=== PATIENT | female | born 1965 | race Caucasian/White ===

== ENCOUNTER → 2020-01-21 08:20 | Outpatient (BNVA) | payer OTHER, SELFPAY | PROVIDERS: Visit Provider Physician Assistant | DX: E66.9 Obesity, unspecified (principal); Z68.37 Body mass index [BMI] 37.0-37.9, adult; Z98.84 Bariatric surgery status | CPT/HCPCS: 99212 ==

== ENCOUNTER 2020-01-22 08:21 | Outpatient (REF) | payer OTHER, SELFPAY ==
--- NOTE | 2020-01-22 08:24 | XR_ITS ---
EXAMINATION: XR PELVIS CLINICAL INFORMATION: M25.559 - Pain in unspecified hip COMPARISON: Radiographs left hip 12/17/2019; chest radiograph 09/16/2016 TECHNIQUE: AP view of the pelvis. FINDINGS: There is no fracture or destructive process. Degenerative changes are present lower lumbar spine with disc narrowing and lumbosacral junction and vertebral spurring L4 and L5. The SI joints and pubis are unremarkable. No diastases. There is whiskering from the bilateral iliac crests both superomedial and superolateral. Left hip shows mild axial narrowing with some mild subchondral sclerosis. No visible erosive change. No definite right hip narrowing. There is spurring from the right superolateral acetabulum. There is bilateral spurring from the hip greater trochanters. Some smooth periosteal thickening again seen just distal to the left lesser trochanter and benign-appearing calcification on right just distal to the greater trochanter. Bowel gas unremarkable. There are surgical clips overlying low central pelvis. XR/XR pelvis 1-2V IMPRESSION: 1. Degenerative changes lumbosacral spine. Osteoarthritis left hip. 2. Bilateral spurring greater trochanters and iliac crests. 3. No bony destructive process or fracture.
== END 2020-01-22 08:22 | disposition home or self-care (01) ==
LOC: HO.HOSX 08:21
PROVIDERS: PCP Internal Medicine; Referring Provider Internal Medicine; Visit Provider Orthopaedic Surgery
DX: M16.12 Unilateral primary osteoarthritis, left hip (principal); S30.1XXA Contusion of abdominal wall, initial encounter; Z79.899 Other long term (current) drug therapy
CPT/HCPCS: 20610; 72170; J1100

== ENCOUNTER → 2020-02-11 08:19 | Outpatient (BNVA) | payer SELFPAY | PROVIDERS: Visit Provider Physician Assistant | DX: Z76.89 Persons encountering health services in other specified circumstances (principal) ==

== ENCOUNTER → 2020-03-17 08:29 | Outpatient (BNVA) | payer OTHER, SELFPAY | PROVIDERS: PCP Internal Medicine; Visit Provider Physician Assistant | DX: Z76.89 Persons encountering health services in other specified circumstances (principal) ==

== ENCOUNTER 2020-03-29 07:00 | Outpatient (RCR) | payer OTHER, SELFPAY ==
--- NOTE | 2020-01-30 08:21 | MHC.PT.EP ---
[facility] [place] Office [place] Office [place] Office [address] Davon Alford [address] [phone] F: [phone] F: [phone] F: [phone] F: [phone] Physical Therapy Plan of Care Date of Evaluation: 01/30/20 Date of Surgery: Diagnosis: Unilateral primary OA of L hip Assessment: 54 y/o F referred to PT with unilateral primary OA of L hip. Her pain started 6 months ago when she fell backwards onto L hip when her lawnmower 'kicked.' Over time, her pain has worsened and located L posterolateral hip. Pain and difficulty with sitting >30min, standing, squatting, getting in/out of car, and ascending/descending stairs. PMH significant for B TKA, cervical surgery (?type after myelopathy). Examination shows decreased L hip AROM, decreased L LE strength, impaired SI mechanics with R anterior innominate, and impaired gait pattern. Recommend PT 2x/week for 5 weeks to address impairments, implement HEP, and optimize functional mobility. Frequency and Duration: The patient will be seen 2x/week for 5 weeks Short Term Goals: 3 weeks 1. I with HEP 2. Improve L hip strength by one MMT grade 3. Demonstrate neutral SI alignment Regional [facility] Manager Goals: 5 weeks: 1. I with HEP and self management of sx 2. Pt will be able to walk > 1 mile with pain < 3/10 3. Pt will be able to get in/out of car with pain < 3/10 Treatment Plan: Modalities to reduce pain, spasms and effusion. Manual therapy to restore motion and function. Therapeutic exercise to improve strength and flexibility. Neuromuscular re-education for posture and balance. Therapeutic activities to return to functional activities of daily living. Please sign and return to therapist. Thank you for your referral.
--- NOTE | 2020-02-20 08:00 | MHC.PT.PR ---
[facility] [place] Office [place] Office [place] Office [address] Davon Alford [address] [phone] F: [phone] F: [phone] F: [phone] F: [phone] Physical Therapy Progress Note Diagnosis: Unilateral primary OA of L hip Date of Evaluation: 01/30/20 Treatments to Date: 6 Cancellations to Date: 0 No Shows to Date: 0 Subjective: I was at school yesterday and had to move more. I still feel stiff. She has an appointment for her lymphedema that was diagnosed this summer in April. Pain Score: 7 Pain Location: L posterolateral hip Objective Measures: Lumbar AROM: extension 75%, flexion 100%. Hip AROM: flexion R 120, L 110. IR R 20, L 15 Resisted tests: L hip flexion 4+, L hip abd 4-/5, L hip add 4+/5, L ER 4/5, L IR 4-/5 (painful), L quads/HS 4+/5, L df/pf 4+/5 Assessment: Reports feeling 70% better overall since starting PT, however she still has difficulty with ascending/descending stairs and getting in/out of the car. She is making good progress with strength, ROM gains, and functional mobility. She would benefit from continued PT 2x/week for 4 more weeks to progress functional mobility and strength to assist with stairs and getting in/out of car. PT Plan: Continue with PT Frequency and Duration: The patient will be seen 2x/week for an additional 4 weeks Treatment Plan: Therapeutic Exercise Dynamic Therapeutic Activities Neuromuscular Re-ed Manual Therapies Gait Home Exercise Program Patient Education Hot or Cold Pack Thank you once again for your referral.
--- NOTE | 2020-03-29 08:07 | MHC.PT.DC ---
[facility] [place] Office [place] Office [place] Office [address] Davon Alford [address] [phone] F: [phone] F: [phone] F: [phone] F: [phone] Physical Therapy Discharge Report Diagnosis: Unilateral primary OA of L hip Date of Surgery: NA Date of Evaluation: 01/30/20 Date of Discharge: 03/29/20 Treatments to Date: 14 Cancellations to Date: 0 No Shows to Date: 1 Discharge Status: Improved Function Independent with HEP Discharge Summary: Pt reports feeling better since starting PT with sit to stands, stepping out of car and she is now ambulating 2 miles/day. She continues to have pain and difficulty with sleeping through the night, stepping into the car, and she continues to ascend/descend stairs in step to pattern. She has an appointment with a lymphedema specialist in April. Lumbar AROM grossly WFL, Hip AROM grossly WFL except L hip IR. Hip/knee strength grossly WFL with limitations continued with hip IR 4-/5. LEFS improved from 2/80 to 30/80. We reviewed HEP and no corrections needed. Pt appropriate for D/c to I HEP. No further questions at this time. Electronically signed by: Delilah Villafana PT DPT Please sign and return to therapist. Thank you for your referral.
== END 2020-03-29 08:07 | disposition other institution (70) ==
LOC: HO.PTCHIC 07:00
PROVIDERS: PCP Internal Medicine; Visit Provider Orthopaedic Surgery
DX: M16.12 Unilateral primary osteoarthritis, left hip (principal)
CPT/HCPCS: 97110; 97112; 97140; 97162; 97530

== ENCOUNTER → 2020-04-15 08:07 | Outpatient (BNVA) | payer OTHER, SELFPAY | PROVIDERS: Visit Provider Orthopaedic Surgery ==

== ENCOUNTER → 2020-05-21 08:08 | Outpatient (BNVA) | payer OTHER, SELFPAY | PROVIDERS: PCP Internal Medicine; Visit Provider Physician Assistant ==

== ENCOUNTER 2020-05-25 06:13 | Outpatient (REF) | payer OTHER, SELFPAY ==
--- NOTE | ~2020-05-25 | FL_ITS ---
EXAMINATION: XR FLUOROSCOPY WITH IMAGES CLINICAL INFORMATION: M16.12 - Unilateral primary osteoarthritis, left hip COMPARISON: Pelvic radiographs 01/22/2020, radiographs left hip 12/17/2019 TECHNIQUE: Fluoroscopy performed by Brooke Claire NP. Fluoroscopy time: 0.2 minutes DAP: 5.78 Gycm2 Images: 1 FINDINGS: There is spinal needle overlying the superolateral left femoral head. There is some intracapsular contrast present. FL/FL guidance in treatment room IMPRESSION: Fluoroscopy for pain management procedure.
== END 2020-05-25 06:14 | disposition home or self-care (01) ==
LOC: HO.RADIR 06:13
PROVIDERS: Visit Provider Anesthesiology
DX: M16.12 Unilateral primary osteoarthritis, left hip (principal)
CPT/HCPCS: 20610; J3300; Q9967

== ENCOUNTER → 2020-06-28 14:50 | Outpatient (BNVA) | payer OTHER, SELFPAY | PROVIDERS: Visit Provider Anesthesiology ==

== ENCOUNTER → 2020-07-12 10:30 | Outpatient (BNVA) | payer OTHER, SELFPAY | PROVIDERS: Visit Provider Orthopaedic Surgery ==

== ENCOUNTER → 2020-07-23 08:42 | Outpatient (BNVA) | payer OTHER, SELFPAY | PROVIDERS: Visit Provider Physician Assistant ==

== ENCOUNTER → 2020-08-17 10:20 | Outpatient (BNVA) | payer OTHER, SELFPAY | PROVIDERS: Visit Provider Orthopaedic Surgery | DX: M17.12 Unilateral primary osteoarthritis, left knee (principal) | CPT/HCPCS: 36415; 80048; 83036; 85025; 93005 ==

== ENCOUNTER → 2020-08-26 08:11 | Outpatient (BNVA) | payer OTHER, SELFPAY | PROVIDERS: PCP Internal Medicine; Visit Provider Physician Assistant ==

== ENCOUNTER → 2020-09-03 13:23 | Outpatient (BNVA) | payer OTHER, SELFPAY | PROVIDERS: Visit Provider Physician Assistant ==

== ENCOUNTER 2020-09-07 07:46 | Inpatient (IN) | payer OTHER, SELFPAY ==
--- NOTE | 2020-08-17 11:26 | ECG_ITS ---
Test Reason : PREPROC EXAM Blood Pressure : / mmHG Vent. Rate : 057 BPM Atrial Rate : 057 BPM P-R Int : 136 ms QRS Dur : 094 ms QT Int : 418 ms P-R-T Axes : 062 063 037 degrees QTc Int : 406 ms Sinus bradycardia Nonspecific ST abnormality Abnormal ECG When compared with ECG of 16-APR-2015 13:37, Premature ventricular complexes are no longer Present Referred By: Uvaldo Messer Electronically Signed By:Alphonse Russell
--- NOTE | 2020-08-30 11:41 | P.CONAN_ITS ---
Documented by User: Kristyn Bella 09/06/20 08:25 HPI - Anesthesia Eval Consult details Narrative: 55yo F for Left Hip Total Replacement PCP cleared Multiple Med allergiesAnaphylaxis with dilaudid and morphine Pt received fentanyl during prior procedures without issue. OK to take oxycodone. PMFSH Active Problems Active Problems: All Active Problems (Updated 08/30/20 @ 11:39 by Khushboo Sanchez) Obesity (Acute) S/P gastric bypass (Acute) Osteoarthritis of left hip (Acute) Arthritis, hip (Acute) Hip pointer (Acute) Hip pain (Acute) Past Medical History Medical History Arthritis Arthritis, hip Hip pain Hip pointer History of colitis History of CVA (cerebrovascular accident) without residual deficits History of shingles Lymphedema Lymphedema of both lower extremities Osteoarthritis of left hip Plantar fasciitis Pulmonary emboli Family History Family History Mother No problems noted. Father No problems noted. Family history of problems with anesthesia: No Surgical History Surgical History History of umbilical hernia repair Hx laparoscopic cholecystectomy Hx of appendectomy Hx of dilation and curettage Hx of gastric bypass Hx of laminectomy Hx of total knee replacement History of Problems with Anesthesia: No Social History Social History (Updated 09/07/20 @ 11:38 by Jewels Lucas RN) Housing: House Are you a primary critical care unit manager to a significant other at home: No Do you presently have visiting nurse or other home services: No Alcohol intake: never Patient Tobacco Use Status: Never used Tobacco Second Hand Smoke Exposure: Yes (parents) Use of substances other than those prescribed or required for medical reasons: No Have you been hit, kicked, punched, or otherwise hurt by someone within the past year? 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 Activity limited to pain. No CP/SOB at rest. Meds Allergies Allergy/AdvReac Type Severity Reaction Status Date / Time cephalexin [Keflex] Allergy Severe anaphylaxis Verified 09/03/20 13:57 dicloxacillin Allergy Severe Anaphylaxis Verified 09/03/20 13:57 Erythromycin Allergy Severe anaphylaxis Verified 09/03/20 13:57 gabapentin [From NEURONTIN] Allergy Severe CONFUSION, Verified 09/03/20 13:57 SLURRED SPEECH hydrochlorothiazide Allergy Severe RASH,SWELLING, Verified 09/03/20 13:57 [HYDROCHLOROTHIAZIDE] weakness, headaches, balance issues, dry mouth hydromorphone [From DILAUDID] Allergy Severe ANAPHYLAXIS Verified 09/03/20 13:57 indomethacin [Indocin] Allergy Severe anaphylaxis Verified 09/03/20 13:57 morphine [MORPHINE] Allergy Severe MAJOR Verified 09/03/20 13:57 HIVES, SWEATING, THROAT CLOSES, hives,sweats moxifloxacin [From AVELOX] Allergy Severe ANAPHYLAXIS Verified 09/03/20 13:57 Sulfa (Sulfonamide Allergy Severe MD SAID TO Verified 09/03/20 13:57 Antibiotics) WATCH OUT, [SULFA (SULFONAMIDE anaphylaxis ANTIBIOTICS)] sulfamethoxazole Allergy Severe ANAPHYLAXIS Verified 09/03/20 13:57 [From BACTRIM] trimethoprim [From BACTRIM] Allergy Severe ANAPHYLAXIS Verified 09/03/20 13:57 Doxycycline Hyclate Allergy Severe anaphylaxis Uncoded 09/03/20 13:57 Pt states no known food Allergy Unknown Unknown Uncoded 09/03/20 13:57 allerg Home Medications Medication Instructions Recorded Confirmed Last Taken Type clonazepam 2 mg tablet 2 mg PO QAM 01/21/20 09/01/20 Unknown History dextroamphetamine-amphetamine 20 1 tab PO TID 01/21/20 09/01/20 Unknown History mg tablet lurasidone 120 mg tablet 120 mg PO DAILY@1700 01/21/20 09/01/20 Unknown History metformin 500 mg tablet,extended 500 mg PO BEDTIME 01/21/20 09/01/20 Unknown History release 24 hr topiramate 50 mg tablet 50 mg PO BID 01/21/20 09/01/20 Unknown History vortioxetine 20 mg tablet 20 mg PO QAM 01/21/20 09/07/20 09/07/20 History clonazepam 4 mg PO QPM 08/27/20 09/01/20 Unknown History inulin [Fiber Gummies] 2 g PO QAM 08/27/20 09/01/20 Unknown History iron,trtfonel-JJ-eogipuge-min 1 tab PO DAILY 08/27/20 09/01/20 Unknown History [Opurity Multivitamin] omeprazole 40 mg PO QAM 08/27/20 09/01/20 Unknown History Exam Exam Date and Time: August 30, 2020 1141 Pertinent Lab Results Pertinent Lab Results: Laboratory Tests 08/17/20 08/17/20 11:40 11:40 WBC 7.0 Hgb 13.5 Hct 40.9 Plt Count 251 Sodium 143 Potassium 3.5 Chloride 108 Carbon Dioxide 26 BUN 17 H Creatinine 0.77 Lab Results 08/30/20 08/30/20 08/30/20 Range/Units 00:00 13:00 13:00 Total Insulin uIU/mL C-Reactive Protein 0.07 (< or = 0.50) mg/dL Triglycerides 97 mg/dL Cholesterol 151 mg/dL LDL Cholesterol, Calc 67 mg/dl HDL Cholesterol 65 mg/dL Vitamin A (38-98) mcg/dL Vitamin B1 (8-30) nmol/L Vitamin B12 (200-900) pg/mL 25-OH Vitamin D Total 43.5 (>30) ng/mL Folate (> or = 4.0) ng/mL TSH 0.22 L (0.32-4.0) uIU/mL Free T4 1.09 (0.71-1.85) ng/dL Nasal Screen MRSA (PCR) POSITIVE A (Negative) Nasal S. aureus Screen POSITIVE A (Negative) Nasal MRSA/S.aureus Interp SEE NOTE Zinc (60-130) mcg/dL Blood Type A Positive Antibody Screen NEGATIVE 08/30/20 08/30/20 08/30/20 Range/Units 13:00 13:00 13:00 Total Insulin 2.2 uIU/mL C-Reactive Protein (< or = 0.50) mg/dL Triglycerides mg/dL Cholesterol mg/dL LDL Cholesterol, Calc mg/dl HDL Cholesterol mg/dL Vitamin A 47 (38-98) mcg/dL Vitamin B1 47 H (8-30) nmol/L Vitamin B12 797 (200-900) pg/mL 25-OH Vitamin D Total (>30) ng/mL Folate 10.8 (> or = 4.0) ng/mL TSH (0.32-4.0) uIU/mL Free T4 (0.71-1.85) ng/dL Nasal Screen MRSA (PCR) (Negative) Nasal S. aureus Screen (Negative) Nasal MRSA/S.aureus Interp Zinc (60-130) mcg/dL Blood Type Antibody Screen 08/30/20 Range/Units 13:00 Total Insulin uIU/mL C-Reactive Protein (< or = 0.50) mg/dL Triglycerides mg/dL Cholesterol mg/dL LDL Cholesterol, Calc mg/dl HDL Cholesterol mg/dL Vitamin A (38-98) mcg/dL Vitamin B1 (8-30) nmol/L Vitamin B12 (200-900) pg/mL 25-OH Vitamin D Total (>30) ng/mL Folate (> or = 4.0) ng/mL TSH (0.32-4.0) uIU/mL Free T4 (0.71-1.85) ng/dL Nasal Screen MRSA (PCR) (Negative) Nasal S. aureus Screen (Negative) Nasal MRSA/S.aureus Interp Zinc 88 (60-130) mcg/dL Blood Type Antibody Screen Narrative Narrative: EKG 08/2020 Vent. Rate : 057 BPM Atrial Rate : 057 BPM P-R Int : 136 ms QRS Dur : 094 ms QT Int : 418 ms P-R-T Axes : 062 063 037 degrees QTc Int : 406 ms Sinus bradycardia Nonspecific ST abnormality Abnormal ECG When compared with ECG of 16-APR-2015 13:37, Premature ventricular complexes are no longer Present Airway Mallampati Class: I TM Dist: >3cm Neck ROM: Limited (Multiple c-spine surgeries) Partial: Upper and Lower Heart: RRR Lungs: CTAB Assessment and Plan Assessment Anesthesia Assessment: Anesthesia Plan Discussed and PAT Visit Documented by User: Sincere Domingo MD 09/07/20 12:38 [facility] Past Medical History Medical History Arthritis Arthritis, hip Hip pain Hip pointer History of colitis History of CVA (cerebrovascular accident) without residual deficits History of shingles Lymphedema Lymphedema of both lower extremities Osteoarthritis of left hip Plantar fasciitis Pulmonary emboli Family History Family History Mother No problems noted. Father No problems noted. Surgical History Surgical History History of umbilical hernia repair Hx laparoscopic cholecystectomy Hx of appendectomy Hx of dilation and curettage Hx of gastric bypass Hx of laminectomy Hx of total knee replacement Social History Social History (Updated 09/07/20 @ 11:38 by Jewels Lucas RN) Housing: House Are you a primary critical care unit manager to a significant other at home: No Do you presently have visiting nurse or other home services: No Alcohol intake: never Patient Tobacco Use Status: Never used Tobacco Second Hand Smoke Exposure: Yes (parents) Use of substances other than those prescribed or required for medical reasons: No Have you been hit, kicked, punched, or otherwise hurt by someone within the past year? 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 Meds Allergies Allergy/AdvReac Type Severity Reaction Status Date / Time cephalexin [Keflex] Allergy Severe anaphylaxis Verified 09/03/20 13:57 dicloxacillin Allergy Severe Anaphylaxis Verified 09/03/20 13:57 Erythromycin Allergy Severe anaphylaxis Verified 09/03/20 13:57 gabapentin [From NEURONTIN] Allergy Severe CONFUSION, Verified 09/03/20 13:57 SLURRED SPEECH hydrochlorothiazide Allergy Severe RASH,SWELLING, Verified 09/03/20 13:57 [HYDROCHLOROTHIAZIDE] weakness, headaches, balance issues, dry mouth hydromorphone [From DILAUDID] Allergy Severe ANAPHYLAXIS Verified 09/03/20 13:57 indomethacin [Indocin] Allergy Severe anaphylaxis Verified 09/03/20 13:57 morphine [MORPHINE] Allergy Severe MAJOR Verified 09/03/20 13:57 HIVES, SWEATING, THROAT CLOSES, hives,sweats moxifloxacin [From AVELOX] Allergy Severe ANAPHYLAXIS Verified 09/03/20 13:57 Sulfa (Sulfonamide Allergy Severe MD SAID TO Verified 09/03/20 13:57 Antibiotics) WATCH OUT, [SULFA (SULFONAMIDE anaphylaxis ANTIBIOTICS)] sulfamethoxazole Allergy Severe ANAPHYLAXIS Verified 09/03/20 13:57 [From BACTRIM] trimethoprim [From BACTRIM] Allergy Severe ANAPHYLAXIS Verified 09/03/20 13:57 Doxycycline Hyclate Allergy Severe anaphylaxis Uncoded 09/03/20 13:57 Pt states no known food Allergy Unknown Unknown Uncoded 09/03/20 13:57 allerg Home Medications Medication Instructions Recorded Confirmed Last Taken Type clonazepam 2 mg tablet 2 mg PO QAM 01/21/20 09/01/20 Unknown History dextroamphetamine-amphetamine 20 1 tab PO TID 01/21/20 09/01/20 Unknown History mg tablet lurasidone 120 mg tablet 120 mg PO DAILY@1700 01/21/20 09/01/20 Unknown History metformin 500 mg tablet,extended 500 mg PO BEDTIME 01/21/20 09/01/20 Unknown History release 24 hr topiramate 50 mg tablet 50 mg PO BID 01/21/20 09/01/20 Unknown History vortioxetine 20 mg tablet 20 mg PO QAM 01/21/20 09/07/20 09/07/20 History clonazepam 4 mg PO QPM 08/27/20 09/01/20 Unknown History inulin [Fiber Gummies] 2 g PO QAM 08/27/20 09/01/20 Unknown History iron,quqfedpv-HI-uupullhl-min 1 tab PO DAILY 08/27/20 09/01/20 Unknown History [Opurity Multivitamin] omeprazole 40 mg PO QAM 08/27/20 09/01/20 Unknown History Assessment and Plan Assessment Anesthesia Assessment: Anesthesia Plan Discussed Final Anesthetic Review NPO: Yes ASA Class: III Final Preanesthetic Review: No Changes in Pt Med Stat, Meds/Allgs Chart Reviewed, Consent Obtained/Reviewed and Anes Risks/Benef Reviewed Patient Risk: Intermediate Procedure Risk: Intermediate Anesthetic Plan Anesthetic Plan: MAC:, Spinal and Regional Block Disposition: Standard PACU
[2020-08-30 11:49] VITALS: BP 120/81; PULSE 67; RESP 16; O2SAT 98; BMI 37.8
[2020-08-30 14:17] LABS: C Reactive Protein 0.07 mg/dL (< or = 0.50); Cholesterol 151 mg/dL; HDL Cholesterol 65 mg/dL; LDL Cholesterol Calculated 67 mg/dl; Triglycerides 97 mg/dL
[2020-08-30 14:27] LABS: MRSA Nasal PCR POSITIVE (Negative); SA Nasal PCR POSITIVE (Negative)
[2020-08-30 14:40] LABS: TSH reflex Free T4 0.22 uIU/mL (0.32-4.0); Vitamin D 25-OH Total 43.5 ng/mL (>30)
[2020-08-30 15:20] LABS: Folate 10.8 ng/mL (> or = 4.0); Vitamin B12 797 pg/mL (200-900)
[2020-08-30 15:56] LABS: Free T4 (Free Thyroxine) 1.09 ng/dL (0.71-1.85)
[2020-08-31 18:32] LABS: Insulin Level Total 2.2 uIU/mL
[2020-09-01 23:42] LABS: Zinc 88 mcg/dL (60-130)
[2020-09-03 18:22] LABS: Vitamin A 47 mcg/dL (38-98)
[2020-09-04 13:41] LABS: Vitamin B1 47 nmol/L (8-30)
[2020-09-07] VITALS (13 sets, daily range): BP systolic 86–138; BP diastolic 44–63; PULSE 47–77; RESP 16–18; TEMP 35.7–36.6; O2SAT 94–100
--- NOTE | ~2020-09-07 | XR_ITS ---
EXAMINATION: XR PELVIS CLINICAL INFORMATION: Post left hip replacement COMPARISON: Previous x-ray January 2020 TECHNIQUE: AP view of the pelvis. FINDINGS: There is a new left hip replacement in satisfactory position. No fracture or dislocation is seen. There is arthritis at the right hip joint. Bones of the visualized pelvis are unremarkable. There are postoperative changes to the soft tissues. XR/XR pelvis 1-2V IMPRESSION: Satisfactory appearance of left hip replacement.
[2020-09-07] MEDS: oxyCODONE HCl ER 10 MG TAB.ER.12H PO ×2 (10:40→20:21)
[2020-09-07] MEDS: Lactated Ringers 1,000 ML 80 ML IVCONT (10:59)
[2020-09-07 11:22] LABS: COVID-19 Test Negative (Negative); IDNOW Serial# 9DD0AD1C
--- NOTE | 2020-09-07 11:34 | PC.NURSE ---
regional block at 1132 pt verbalized understanding of procedure and plan of care
--- NOTE | 2020-09-07 13:59 | P.BOP_ITS ---
Brief Operative Note Date of Service: 09/07/20 Pre-op diagnosis: left hip OA Post-op diagnosis: same Procedure: Left DEE Implants: Buckner trident2 52/20 deg liner Accolade2#6 127 with 36+2.5 ceramic Surgeon: Uvaldo Messer MD Anesthesia: GETA Was an Leather Heel Breaster used for this Procedure?: Yes Leather Heel Breaster: Mague Cameron Estimated blood loss (mL): 300 IV fluids (mL): 1,400 Pathology: other Condition: stable Disposition: PACU
--- NOTE | 2020-09-07 13:59 | MHC.SHP ---
Pre-Procedural Eval Section A The patient is an INPATIENT: No Changes since office visit: Yes Patient answered all questions; No Cold of Flu in the past 2 weeks, No New Medical Problems and No Changes in Medication The History & Physical has been completed within 30 days and I have reviewed it.: Yes Section B Chief Complaint: left total hip arthroplasty Allergies: Allergies Allergy/AdvReac Type Severity Reaction Status Date / Time cephalexin [Keflex] Allergy Severe anaphylaxis Verified 09/03/20 13:57 dicloxacillin Allergy Severe Anaphylaxis Verified 09/03/20 13:57 Erythromycin Allergy Severe anaphylaxis Verified 09/03/20 13:57 gabapentin [From NEURONTIN] Allergy Severe CONFUSION, Verified 09/03/20 13:57 SLURRED SPEECH hydrochlorothiazide Allergy Severe RASH,SWELLING, Verified 09/03/20 13:57 [HYDROCHLOROTHIAZIDE] weakness, headaches, balance issues, dry mouth hydromorphone [From DILAUDID] Allergy Severe ANAPHYLAXIS Verified 09/03/20 13:57 indomethacin [Indocin] Allergy Severe anaphylaxis Verified 09/03/20 13:57 morphine [MORPHINE] Allergy Severe MAJOR Verified 09/03/20 13:57 HIVES, SWEATING, THROAT CLOSES, hives,sweats moxifloxacin [From AVELOX] Allergy Severe ANAPHYLAXIS Verified 09/03/20 13:57 Sulfa (Sulfonamide Allergy Severe MD SAID TO Verified 09/03/20 13:57 Antibiotics) WATCH OUT, [SULFA (SULFONAMIDE anaphylaxis ANTIBIOTICS)] sulfamethoxazole Allergy Severe ANAPHYLAXIS Verified 09/03/20 13:57 [From BACTRIM] trimethoprim [From BACTRIM] Allergy Severe ANAPHYLAXIS Verified 09/03/20 13:57 Doxycycline Hyclate Allergy Severe anaphylaxis Uncoded 09/03/20 13:57 Pt states no known food Allergy Unknown Unknown Uncoded 09/03/20 13:57 allerg Plan I have reviewed the history and physical and performed a pertinent physical examination on my patient. No changes have occurred unless specified.
[2020-09-07] MEDS: Dextrose 5 % and 0.45 % NaCl 1,000 ML 80 ML IVCONT (16:11)
[2020-09-07] MEDS: 0.9 % Sodium Chloride Flush 3 ML SYRINGE IVFLUSH (16:12)
[2020-09-07] MEDS: oxyCODONE HCl Immed Release 5 MG TABLET PO ×2 (17:17→21:34)
[2020-09-07] MEDS: Docusate Sodium 100 MG CAPSULE PO (20:21)
[2020-09-07] MEDS: 0.9 % Sodium Chloride 1,000 ML 999 ML IV (20:21)
[2020-09-07] MEDS: vancomycin HCL 1,500 MG in 0.9 % Sodium Chloride 500 ML 333.33 MG IV (23:16)
--- NOTE | 2020-09-08 00:09 | P.PNIM_ITS ---
Subjective Subjective Date of Service: 09/11/20 Interval History: Medicine consultation note: 55-year-old female with a past medical history of diabetes, anxiety, depression, mood disorder, history of CVA, conversion disorder, history of arthritis, status post bilateral knee replacement, , history of left hip osteoarthritis admitted to the hospital under orthopedic service for elective left hip total replacement. Patient is status post procedure on 09/07/2020 - lost 300 cc of blood; medicine team was consulted for comanagement. The patient denies any hip pain, chest pain palpitations lightheadedness dizziness fever chills cough or urinary symptoms. Denies any GI symptoms. Physical Exam Vital Signs: Vital Signs: Last Vital Signs Temp 97.4 F 09/07/20 23:33 Pulse 77 09/07/20 23:33 Resp 18 09/07/20 23:33 BP 122/60 09/07/20 23:33 Pulse Ox 98 09/07/20 23:33 Body Mass Index 37.8 Gen: Appears be in no acute distress HEENT: NCAT, Moist mucosa. Pulmonary: Vesicular breath sounds, fair air entry CVS: Normal S1-S2 Abdomen: BS+, Soft, Nontender Extremities: Warm well perfused ; left hip status post surgery, dressing in place Neuro: Alert and awake. Objective Data Current Medications Generic Name Dose Route Start Last Admin Trade Name Freq PRN Reason Stop Dose Admin Acetaminophen 650 mg 09/07/20 15:44 Acetaminophen 325 Mg Tablet PO Q6H PRN Pain, Mild (Pain Scale 1-3) Docusate Sodium 100 mg 09/07/20 21:00 09/07/20 20:21 Docusate Sodium 100 Mg Capsule PO 100 mg BID MELBA Administration Dextrose/Sodium Chloride 1,000 mls @ 80 mls/hr 09/07/20 15:44 09/07/20 16:11 D51/2ns IVCONT 80 mls/hr .[id number] MELBA Administration Vancomycin HCl 1,500 mg/ 500 mls @ 333.333 mls/hr 09/07/20 23:00 09/07/20 23:16 Sodium Chloride IV 09/08/20 00:29 333.33 mls/hr ONCE@2300 MELBA Administration Ondansetron HCl 4 mg 09/07/20 15:44 Ondansetron Hcl 4 Mg/2 Ml Vial IVPUSH Q8H PRN Nausea and Vomiting Oxycodone HCl 10 mg 09/07/20 21:00 09/07/20 20:21 Oxycodone Hcl Er 10 Mg Tab.Er.12h PO 10 mg BID MELBA Administration Oxycodone HCl 5 mg 09/07/20 15:44 09/07/20 21:34 Oxycodone Hcl Immed Release 5 Mg Tablet PO 5 mg Q4H PRN Administration Pain, Moderate (Pain Scale 4-6 Sodium Chloride 3 ml 09/07/20 16:00 09/07/20 20:25 0.9 % Sodium Chloride Flush 3 Ml Syringe IVFLUSH Not Given QSHIFT [facility] Labs CBC & Chem 7: 09/10/20 10:14 09/10/20 05:56 Labs: Laboratory Results - last 24 hr 09/07/20 10:30 COVID-19 ([facility]) Negative COVID-19 Clin Com See Note Quality Stroke Does the patient have a stroke diagnosis?: No VTE Prior VTE?: No VTE Risk Level:: Medical - moderate - high VTE Device Contraindication: N/A - Device Ordered VTE Drug Contraindication: N/A - Med Ordered Assessment and Plan (1) Osteoarthritis of left hip: Assessment and Plan: 55-year-old female with a past medical history of diabetes, anxiety, depression, mood disorder, CVA, conversion disorder, history of bilateral knee replacement, left hip osteoarthritis -presented for elective left hip total replacement left hip osteoarthritis / status post left hip total replacement: management including pain control, DVT prophylaxis as per the orthopedics team. History of diabetes: Patient continued on insulin sliding scale. Diabetic diet. Patient to be resumed on home regimen upon discharge. History of anxiety/depression /mood disorder: Patient will be continued on her home medications. Thank you for the consultation. Please call medicine Team for any further questions.
[2020-09-08] MEDS: clonazePAM 1 MG TABLET 4 MG PO ×2 (00:47→20:44)
[2020-09-08 03:43] VITALS: BP 98/51; PULSE 74; RESP 18; TEMP 36.6; O2SAT 96
[2020-09-08 06:15] LABS: MANUAL DIFF FLAG NO
[2020-09-08] MEDS: Omeprazole 40 MG CAPSULE.DR PO (06:16)
[2020-09-08] MEDS: oxyCODONE HCl Immed Release 5 MG TABLET PO ×4 (06:16→20:42)
[2020-09-08] MEDS: Dextrose 5 % and 0.45 % NaCl 1,000 ML 80 ML IVCONT (06:16)
[2020-09-08 06:19] LABS: Eosinophils Percent Auto 0.4 % (0-4); Hematocrit 31.1 % (37-47); Hemoglobin 10.4 g/dl (12.0-16.0); Imm Gran Abs Auto 0.02 X10*3/uL (0.00-0.03); Imm Gran Pct Auto 0.3 % (0.0-0.4); Lymphocytes Percent Auto 13.8 % (20-40); Mean Corpuscular HGB Conc 33.4 g/dl (31.0-35.0); Mean Corpuscular Hemoglobin 30.1 pg (27.0-33.0); Mean Corpuscular Volume 89.9 fL (80-98); Mean Platelet Volume 9.9 fL (9.4-12.3); Monocytes Absolute Auto 0.5 X10*3/uL (0.1-1.2); Monocytes Percent Auto 7.2 % (2-11); Neutrophils Absolute Auto 5.5 X10*3/uL (2.0-8.3); Neutrophils Percent Auto 78.3 % (45-73); Platelet Count 151 X10*3/uL (160-400); Red Blood Count 3.46 X10*6/uL (4.20-5.50); Red Cell Distribution Width 13.1 % (11.0-16.0); White Blood Count 7.1 X10*3/uL (4.8-10.8)
[2020-09-08 06:51] LABS: Anion Gap 7 (12-20); Blood Urea Nitrogen 14 mg/dL (9-16); Calcium 7.7 mg/dL (8.4-10.2); Carbon Dioxide 26 mmol/L (22-29); Chloride 111 mmol/L (96-108); Creatinine Clr Calc Pharmacy 107.8; Estimated Glomerular Filt Rate > 60; Glucose Fasting 143 mg/dL (60-99); Potassium 4.5 mmol/L (3.3-5.1); Sodium 139 mmol/L (135-145)
[2020-09-08] MEDS: clonazePAM 1 MG TABLET 2 MG PO (07:22)
[2020-09-08 07:23] VITALS: BP 92/51; PULSE 74; RESP 18; TEMP 36.3; O2SAT 98
[2020-09-08] MEDS: Vortioxetine Hydrobromide 20 MG TABLET PO (07:23)
[2020-09-08] MEDS: oxyCODONE HCl ER 10 MG TAB.ER.12H PO (07:23)
[2020-09-08] MEDS: Docusate Sodium 100 MG CAPSULE PO ×2 (07:23→20:43)
[2020-09-08] MEDS: Topiramate 25 MG TABLET 50 MG PO ×2 (07:24→20:43)
[2020-09-08] MEDS: Amphetamine Mixed Salts 20 MG TABLET PO ×3 (07:24→16:14)
--- NOTE | 2020-09-08 07:40 | PM.PNORT ---
Subjective Subjective Date of Service: 09/08/20 Interval history: POD1 s/p left DEE with Dr. Messer. No overnight events. Patient is resting comfortably in bed. Pain is well managed. Denies any SOB, chest pain, abd pain, dizziness. Physical Exam Vital Signs: Vital Signs: Last Vital Signs Temp 97.3 F 09/08/20 07:23 Pulse 74 09/08/20 07:23 Resp 18 09/08/20 07:23 BP 92/51 L 09/08/20 07:23 Pulse Ox 98 09/08/20 07:23 Body Mass Index 37.8 Const: General: cooperative, healthy appearing and no acute distress Resp: Effort & Inspection: normal respiratory effort and able to speak in complete sentences Cardio: Rate: regular rate Peripheral pulses: Peripheral pulses 2+ throughout GI: Palpation (GI): Soft to palpation Skin: Lesions: no lesions Rashes: no rashes Extrem: Other: Left hip Aquacel dressing is clean, dry, and intact. No ecchymosis, redness, or drainage. patient can dorsiflex and plantarflex. Block is still in effect., Progress Note: A&P Assessment and plan (1) Status post total hip replacement, left: Status: Acute Assessment and Plan: Continue pain mgmnt Begin Lovenox for dvt ppx begin PT for left DEE Dispo planning-Pending PT eval, pain mgmnt Fall Risk Details Current Medications: Current Medications Generic Name Dose Route Start Last Admin Trade Name Freq PRN Reason Stop Dose Admin Acetaminophen 650 mg 09/07/20 15:44 Acetaminophen 325 Mg Tablet PO Q6H PRN Pain, Mild (Pain Scale 1-3) Amphetamine/Dextroamphetamine 20 mg 09/08/20 07:30 09/08/20 07:24 Amphetamine Mixed Salts 20 Mg Tablet PO 20 mg TIDAC MELBA Administration Clonazepam 2 mg 09/08/20 09:00 09/08/20 07:22 Clonazepam 1 Mg Tablet PO 2 mg DAILY MELBA Administration Clonazepam 4 mg 09/08/20 00:15 09/08/20 00:47 Clonazepam 1 Mg Tablet PO 4 mg BEDTIME MELBA Administration Docusate Sodium 100 mg 09/07/20 21:00 09/08/20 07:23 Docusate Sodium 100 Mg Capsule PO 100 mg BID MELBA Administration Dextrose/Sodium Chloride 1,000 mls @ 80 mls/hr 09/07/20 15:44 09/08/20 06:16 D51/2ns IVCONT 80 mls/hr .[id number] [facility] Administration Insulin Human Lispro 0 unit 09/08/20 07:30 09/08/20 07:25 Insulin Lispro 100 Unit/Ml 3 Ml Vial SUBCUT Not Given QIDACHS [facility] Protocol Lurasidone HCl 120 mg 09/08/20 17:00 Lurasidone Hcl 40 Mg Tablet PO DAILY@1700 [facility] Multivitamins/Minerals 1 tab 09/08/20 09:00 09/08/20 07:23 Multivitamin With Minerals Tablet PO 1 tab DAILY [facility] Administration Omeprazole 40 mg 09/08/20 06:30 09/08/20 06:16 Omeprazole 40 Mg Capsule.Dr PO 40 mg DAILY@0630 [facility] Administration Ondansetron HCl 4 mg 09/07/20 15:44 Ondansetron Hcl 4 Mg/2 Ml Vial IVPUSH Q8H PRN Nausea and Vomiting Oxycodone HCl 5 mg 09/07/20 15:44 09/08/20 06:16 Oxycodone Hcl Immed Release 5 Mg Tablet PO 5 mg Q4H PRN Administration Pain, Moderate (Pain Scale 4-6 Sodium Chloride 3 ml 09/07/20 16:00 09/08/20 07:22 0.9 % Sodium Chloride Flush 3 Ml Syringe IVFLUSH Not Given QSHIFT [facility] Topiramate 50 mg 09/08/20 09:00 09/08/20 07:24 Topiramate 25 Mg Tablet PO 50 mg BID MELBA Administration Vortioxetine 20 mg 09/08/20 09:00 09/08/20 07:23 Vortioxetine Hydrobromide 20 Mg Tablet PO 20 mg DAILY MELBA Administration Time Spent With Patient Time: Total time spent is greater than 50% in coordination of care (as documented) at patient's floor/unit and/or counseling patient: Time with patient: less than 15 minutes Procedures Date of Service Date of Service: 09/08/20 Quality Stroke Does the patient have a stroke diagnosis?: No VTE Prior VTE?: No VTE Risk Level:: Surgical - high VTE Device Contraindication: N/A - Device Ordered VTE Drug Contraindication: N/A - Med Ordered
[2020-09-08] MEDS: Enoxaparin Sodium 40 MG/0.4 ML SYRINGE SUBCUT (07:49)
[2020-09-08 08:07] LABS: Glucose, Whole Blood 135 mg/dL (60-115)
--- NOTE | 2020-09-08 09:25 | HO.PM.IMPN ---
Subjective Subjective Date of Service: 09/08/20 Interval History: seen in f/u for med consult, s/p left hip arthroplasty, has some pain, blood pressure on lower side, she denies, dizziness Review of Systems Gen: no fever Resp: no sob, no cough CV: no chest, no [place], no leg edema GI: No n/v, no abd pain Neuro: No confusion pain in the hip with movment Physical Exam Vital Signs: Vital Signs: Last Vital Signs Temp 97.3 F 09/08/20 07:23 Pulse 74 09/08/20 07:23 Resp 18 09/08/20 07:23 BP 92/51 L 09/08/20 07:23 Pulse Ox 98 09/08/20 07:23 Body Mass Index 37.8 Constitutional Awake and Alert, No apparent distress Neck Supple, No lymphadenopathy Cardiovascular RRR, No M/R/G, S1 S2, No S3 S4, No pedal edema Respiratory Lungs clear, No respiratory distress Gastrointestinal Non tender, Non-distended Skin No rash, wound dressing intact Neurological Alert & oriented x3 Psychological Appropriate affect Objective Data Current Medications Generic Name Dose Route Start Last Admin Trade Name Freq PRN Reason Stop Dose Admin Acetaminophen 650 mg 09/07/20 15:44 Acetaminophen 325 Mg Tablet PO Q6H PRN Pain, Mild (Pain Scale 1-3) Amphetamine/Dextroamphetamine 20 mg 09/08/20 07:30 09/08/20 07:24 Amphetamine Mixed Salts 20 Mg Tablet PO 20 mg TIDAC MELBA Administration Clonazepam 2 mg 09/08/20 09:00 09/08/20 07:22 Clonazepam 1 Mg Tablet PO 2 mg DAILY MEL[facility] Administration Clonazepam 4 mg 09/08/20 00:15 09/08/20 00:47 Clonazepam 1 Mg Tablet PO 4 mg BEDTIME [facility] Administration Docusate Sodium 100 mg 09/07/20 21:00 09/08/20 07:23 Docusate Sodium 100 Mg Capsule PO 100 mg BID MELBA Administration Enoxaparin Sodium 40 mg 09/08/20 07:45 09/08/20 07:49 Enoxaparin Sodium 40 Mg/0.4 Ml Syringe SUBCUT 40 mg Q24H MELBA Administration Lactated Ringer's 1,000 mls @ 125 mls/hr 09/08/20 08:30 Lr IVCONT .Q8H MELBA Insulin Human Lispro 0 unit 09/08/20 07:30 09/08/20 07:25 Insulin Lispro 100 Unit/Ml 3 Ml Vial SUBCUT Not Given QIDACHS [facility] Protocol Lurasidone HCl 120 mg 09/08/20 17:00 Lurasidone Hcl 40 Mg Tablet PO DAILY@1700 [facility] Multivitamins/Minerals 1 tab 09/08/20 09:00 09/08/20 07:23 Multivitamin With Minerals Tablet PO 1 tab DAILY [facility] Administration Omeprazole 40 mg 09/08/20 06:30 09/08/20 06:16 Omeprazole 40 Mg Capsule.Dr PO 40 mg DAILY@0630 [facility] Administration Ondansetron HCl 4 mg 09/07/20 15:44 Ondansetron Hcl 4 Mg/2 Ml Vial IVPUSH Q8H PRN Nausea and Vomiting Oxycodone HCl 5 mg 09/07/20 15:44 09/08/20 06:16 Oxycodone Hcl Immed Release 5 Mg Tablet PO 5 mg Q4H PRN Administration Pain, Moderate (Pain Scale 4-6 Sodium Chloride 3 ml 09/07/20 16:00 09/08/20 07:22 0.9 % Sodium Chloride Flush 3 Ml Syringe IVFLUSH Not Given QSHIFT [facility] Topiramate 50 mg 09/08/20 09:00 09/08/20 07:24 Topiramate 25 Mg Tablet PO 50 mg BID [facility] Administration Vortioxetine 20 mg 09/08/20 09:00 09/08/20 07:23 Vortioxetine Hydrobromide 20 Mg Tablet PO 20 mg DAILY [facility] Administration Labs CBC & Chem 7: 09/08/20 06:06 09/08/20 06:06 Labs: Laboratory Results - last 24 hr 09/07/20 09/08/20 09/08/20 10:30 06:06 06:06 WBC 7.1 RBC 3.46 L D Hgb 10.4 L D Hct 31.1 L D MCV 89.9 MCH 30.1 MCHC 33.4 RDW 13.1 Plt Count 151 L D MPV 9.9 Immature Gran % (Auto) 0.3 Neut % (Auto) 78.3 H Lymph % (Auto) 13.8 L Winston % (Auto) 7.2 Eos % (Auto) 0.4 Baso % (Auto) 0.0 Lymph # (Auto) 1.0 L Winston # (Auto) 0.5 Eos # (Auto) 0.0 Baso # (Auto) 0.0 Abs Immat Gran (auto) 0.02 Absolute Neuts (auto) 5.5 Absolute Nucleated RBC 0.000 Nucleated RBC % (auto) 0.0 Sodium 139 Potassium 4.5 D Chloride 111 H Carbon Dioxide 26 Anion Gap 7 L BUN 14 Creatinine 0.67 Estim Creat Clear Calc 107.8 Estimated GFR > 60 POC Glucose Fasting Glucose 143 H Calcium 7.7 L D COVID-19 ([facility]) Negative COVID-19 Clin Com See Note 09/08/20 07:21 WBC RBC Hgb Hct MCV MCH MCHC RDW Plt Count MPV Immature Gran % (Auto) Neut % (Auto) Lymph % (Auto) Winston % (Auto) Eos % (Auto) Baso % (Auto) Lymph # (Auto) Winston # (Auto) Eos # (Auto) Baso # (Auto) Abs Immat Gran (auto) Absolute Neuts (auto) Absolute Nucleated RBC Nucleated RBC % (auto) Sodium Potassium Chloride Carbon Dioxide Anion Gap BUN Creatinine Estim Creat Clear Calc Estimated GFR POC Glucose 135 H Fasting Glucose Calcium COVID-19 ([facility]) COVID-19 Clin Com Quality Stroke Does the patient have a stroke diagnosis?: No VTE Prior VTE?: No VTE Risk Level:: Surgical - high VTE Device Contraindication: N/A - Device Ordered VTE Drug Contraindication: N/A - Med Ordered Assessment and Plan (1) Osteoarthritis of left hip: Status: Acute Assessment and Plan: 55-year-old female with a past medical history of diabetes, anxiety, depression, mood disorder, CVA, conversion disorder, history of bilateral knee replacement, left hip osteoarthritis -presented for elective left hip total replacement left hip osteoarthritis / status post left hip total replacement: management including pain control, DVT prophylaxis as per the orthopedics team. History of diabetes: Patient continued on insulin sliding scale. Diabetic diet. Patient to be resumed on home regimen upon discharge. History of anxiety/depression /mood disorder: She can restart Metformin if blood sugar are high enought Hypotension--likely post anesthetic effect, no sign of evidence of sepsis. DC 1/2 NS, give LR and reevaluate Thank you for the consultation. Please call medicine Team for any further questions.
--- NOTE | 2020-09-08 10:00 | MHC.CM.PN ---
EMR REVIEWED, PT ADMITTED S/P LEFT DEE, CM MET W/PT WHO REPORTS SHE LIVES ALONE, PT WORKS [employer] AND HAS NO DME OR HOME SERVICES, PT REPORTS SHE WOULD LIKE TO GO TO THE [facility] [place] FOR REHAB AND REFERRAL TO BE MADE TO [facility]OTH [facility], PT WILL ALSO BE GIVEN LIST OF SNF'S FOR STR IN CASE SHE DOES NOT QUALIFY FOR ACUTE REHAB. PT VERIFIES PCP, PHARMACY AND HCP IS ON FILE FROM PREVIOUS VISIT. D/C PLAN: ACUTE REHAB VS STR, [facility] FOR BLS TRANSPORT PCP: MARICEL BUCIO HCP: SCOTT MOYA [phone]
[2020-09-08] MEDS: Lactated Ringers 1,000 ML 125 ML IVCONT ×2 (10:11→17:56)
[2020-09-08] MEDS: Acetaminophen 325 MG TABLET 650 MG PO ×2 (10:16→18:02)
[2020-09-08 11:47] LABS: Glucose, Whole Blood 105 mg/dL (60-115)
[2020-09-08 12:00] VITALS: BP 102/51; PULSE 78; RESP 18; TEMP 36.3; O2SAT 98
--- NOTE | 2020-09-08 14:47 | MHC.CM.PN ---
PER PT REQUEST REFERRALS SENT TO [facility] .
[2020-09-08 15:12] VITALS: BP 103/53; PULSE 72; RESP 19; TEMP 36.7; O2SAT 99
--- NOTE | 2020-09-08 16:02 | HO.POSTANES ---
Post Anesthesia Evaluation Post Anesthesia Evaluation Vital Signs: Vital Signs Temp Pulse Resp BP Pulse Ox 09/08/20 15:12 98.0 F 72 19 103/53 L 99 09/08/20 12:00 97.4 F 78 18 102/51 L 98 09/08/20 07:23 97.3 F 74 18 92/51 L 98 Anesthesia: Spinal Mental Status: Awake Pain Control: Satisfactory Nausea/Vomiting: None Hydration: Adequate Anesthesia-Related Issues: No Anes. Related Issues
[2020-09-08] MEDS: Lurasidone HCl 40 MG TABLET 120 MG PO (16:14)
[2020-09-08 17:01] LABS: Glucose, Whole Blood 77 mg/dL (60-115)
[2020-09-08 19:14] VITALS: BP 110/53; PULSE 75; RESP 19; TEMP 36.7; O2SAT 99
[2020-09-08 20:46] LABS: Glucose, Whole Blood 103 mg/dL (60-115)
[2020-09-08 23:13] VITALS: BP 116/60; PULSE 81; RESP 18; TEMP 36.4; O2SAT 98
[2020-09-08] MEDS: 0.9 % Sodium Chloride Flush 3 ML SYRINGE IVFLUSH (23:23)
[2020-09-09] MEDS: Lactated Ringers 1,000 ML 125 ML IVCONT ×3 (01:07→17:42)
[2020-09-09 04:00] VITALS: BP 110/76; PULSE 77; RESP 16; TEMP 36; O2SAT 98
[2020-09-09] MEDS: Acetaminophen 325 MG TABLET 650 MG PO ×2 (04:59→11:30)
[2020-09-09] MEDS: Omeprazole 40 MG CAPSULE.DR PO (05:35)
[2020-09-09 07:30] LABS: Anion Gap 7 (12-20); Blood Urea Nitrogen 9 mg/dL (9-16); Carbon Dioxide 27 mmol/L (22-29); Chloride 112 mmol/L (96-108); Creatinine Clr Calc Pharmacy 112.9; Estimated Glomerular Filt Rate > 60; Glucose Fasting 103 mg/dL (60-99); Potassium 3.9 mmol/L (3.3-5.1); Sodium 142 mmol/L (135-145)
--- NOTE | 2020-09-09 07:50 | PM.PNORT ---
Subjective Subjective Date of Service: 09/09/20 Interval history: POD2 s/p LTHA with Dr. Messer. Patient is resting comfortably in bed. No overnight events. Pain is well managed. No additional complaints. Physical Exam Vital Signs: Vital Signs: Last Vital Signs Temp 96.8 F 09/09/20 04:00 Pulse 77 09/09/20 04:00 Resp 16 09/09/20 04:00 BP 110/76 09/09/20 04:00 Pulse Ox 98 09/09/20 04:00 Body Mass Index 37.8 Const: General: cooperative, healthy appearing and no acute distress Resp: Effort & Inspection: normal respiratory effort and able to speak in complete sentences Cardio: Rate: regular rate Peripheral pulses: Peripheral pulses 2+ throughout GI: Palpation (GI): Soft to palpation Skin: Lesions: no lesions Rashes: no rashes Extrem: Other: Left hip Aquacel dressing is clean, dry, and intact. No ecchymosis, redness or drainage. NVI. Progress Note: A&P Assessment and plan (1) Status post total hip replacement, left: Status: Acute Assessment and Plan: Continue pain mgmnt Continue Lovenox for dvt ppx Continue PT for left DEE Dispo planning-Pending PT eval, pain mgmnt Fall Risk Details Current Medications: Current Medications Generic Name Dose Route Start Last Admin Trade Name Freq PRN Reason Stop Dose Admin Acetaminophen 650 mg 09/07/20 15:44 09/09/20 04:59 Acetaminophen 325 Mg Tablet PO 650 mg Q6H PRN Administration Pain, Mild (Pain Scale 1-3) Amphetamine/Dextroamphetamine 20 mg 09/08/20 07:30 09/08/20 16:14 Amphetamine Mixed Salts 20 Mg Tablet PO 20 mg TIDAC MELBA Administration Clonazepam 2 mg 09/08/20 09:00 09/08/20 07:22 Clonazepam 1 Mg Tablet PO 2 mg DAILY [facility]ELBA Administration Clonazepam 4 mg 09/08/20 00:15 09/08/20 20:44 Clonazepam 1 Mg Tablet PO 4 mg BEDTIME MELBA Administration Docusate Sodium 100 mg 09/07/20 21:00 09/08/20 20:43 Docusate Sodium 100 Mg Capsule PO 100 mg BID MELBA Administration Enoxaparin Sodium 40 mg 09/08/20 07:45 09/08/20 07:49 Enoxaparin Sodium 40 Mg/0.4 Ml Syringe SUBCUT 40 mg Q24H MELBA Administration Lactated Ringer's 1,000 mls @ 125 mls/hr 09/08/20 08:30 09/09/20 01:07 Lr IVCONT 125 mls/hr .Q8H MELBA Administration Insulin Human Lispro 0 unit 09/08/20 07:30 09/08/20 20:48 Insulin Lispro 100 Unit/Ml 3 Ml Vial SUBCUT Not Given QIDACHS [facility] Protocol Lurasidone HCl 120 mg 09/08/20 17:00 09/08/20 16:14 Lurasidone Hcl 40 Mg Tablet PO 120 mg DAILY@1700 [facility] Administration Multivitamins/Minerals 1 tab 09/08/20 09:00 09/08/20 07:23 Multivitamin With Minerals Tablet PO 1 tab DAILY [facility] Administration Omeprazole 40 mg 09/08/20 06:30 09/09/20 05:35 Omeprazole 40 Mg Capsule.Dr PO 40 mg DAILY@0630 [facility] Administration Ondansetron HCl 4 mg 09/07/20 15:44 Ondansetron Hcl 4 Mg/2 Ml Vial IVPUSH Q8H PRN Nausea and Vomiting Oxycodone HCl 5 mg 09/07/20 15:44 09/08/20 20:42 Oxycodone Hcl Immed Release 5 Mg Tablet PO 5 mg Q4H PRN Administration Pain, Moderate (Pain Scale 4-6 Sodium Chloride 3 ml 09/07/20 16:00 09/09/20 07:24 0.9 % Sodium Chloride Flush 3 Ml Syringe IVFLUSH Not Given QSHIFT [facility] Topiramate 50 mg 09/08/20 09:00 09/08/20 20:43 Topiramate 25 Mg Tablet PO 50 mg BID MELBA Administration Vortioxetine 20 mg 09/08/20 09:00 09/08/20 07:23 Vortioxetine Hydrobromide 20 Mg Tablet PO 20 mg DAILY MELBA Administration Time Spent With Patient Time: Total time spent is greater than 50% in coordination of care (as documented) at patient's floor/unit and/or counseling patient: Time with patient: less than 15 minutes Procedures Date of Service Date of Service: 09/09/20 Quality Stroke Does the patient have a stroke diagnosis?: No VTE Prior VTE?: No VTE Risk Level:: Surgical - high VTE Device Contraindication: N/A - Device Ordered VTE Drug Contraindication: N/A - Med Ordered
[2020-09-09 07:59] LABS: Glucose, Whole Blood 101 mg/dL (60-115)
[2020-09-09] MEDS: Amphetamine Mixed Salts 20 MG TABLET PO ×3 (07:59→16:21)
[2020-09-09 08:00] VITALS: BP 128/71; PULSE 73; RESP 18; TEMP 36.6; O2SAT 97
[2020-09-09] MEDS: oxyCODONE HCl Immed Release 5 MG TABLET PO ×3 (08:00→23:23)
[2020-09-09] MEDS: Topiramate 25 MG TABLET 50 MG PO ×2 (08:00→20:22)
[2020-09-09] MEDS: Docusate Sodium 100 MG CAPSULE PO ×2 (08:00→20:23)
[2020-09-09] MEDS: clonazePAM 1 MG TABLET 2 MG PO (08:00)
[2020-09-09] MEDS: Vortioxetine Hydrobromide 20 MG TABLET PO (08:00)
[2020-09-09] MEDS: Enoxaparin Sodium 40 MG/0.4 ML SYRINGE SUBCUT (08:01)
[2020-09-09 11:13] LABS: Glucose, Whole Blood 120 mg/dL (60-115)
--- NOTE | 2020-09-09 11:22 | PC.NURSE ---
Skin assessment completed today. Patient has Aquacel dressing to left hip, C/D/I small staining seen. No other open areas or rashes found. Pt. is ambulating daily with physical therapist.
[2020-09-09 12:00] VITALS: BP 135/69; PULSE 89; RESP 18; TEMP 36.3; O2SAT 97
[2020-09-09 15:01] VITALS: BP 111/83; PULSE 82; RESP 16; TEMP 35.9; O2SAT 98
[2020-09-09 16:12] LABS: Glucose, Whole Blood 64 mg/dL (60-115)
[2020-09-09] MEDS: Lurasidone HCl 40 MG TABLET 120 MG PO (16:21)
--- NOTE | 2020-09-09 17:14 | P.OP_ITS ---
Operative Note Operative Note Date of Service: 09/07/20 Narrative: Pre-op diagnosis: left hip OA Post-op diagnosis: same Procedure: Left DEE Implants: [place] trident2 52/20 deg liner Accolade2#[id number] with 36+2.5 ceramic Surgeon: Uvaldo Messer MD Anesthesia: GETA Was an Data Reviewer used for this Procedure?: Yes Data Reviewer: Mague Cameron Estimated blood loss (mL): 300 IV fluids (mL): 1,400 Pathology: other Condition: stable Disposition: PACU Procedure in detail: Patient was brought into the operating room and placed in a right lateral decubitus position. All bony prominences were well padded and the limb was prepped and draped in standard sterile fashion. Time-out was called to identify proper site procedure proper surgeon IV antibiotics and 1 g of trans to make acid were administered. I began by making a curvilinear incision over the posterolateral aspect of the greater trochanter. Dissection was taken down to the tensor fascia which was incised in line with the incision and a Charnley retractor was placed. Hip was internally rotated and the external rotators were identified. The vessels were cauterized and a full-thickness capsular/external rotator layer was developed starting just proximal to the piriformis. Dull Hohmann retractor was placed underneath the neck in the hip was dislocated. A neck cut was made 1 cm proximal to the lesser trochanter and the head and neck were removed and measured on the back table. Placed my anterior-posterior acetabular retractors and performed a labrectomy. I then sequentially reamed up to a size _52__ and impacted a final cup in approximately 45 degrees of inclination and 25 degrees of version. She had a shallow cup and 235 mm acetabular screws were placed into the ilium using standard AO technique. I then placed a 20 degree posterior lipped liner and turned my attention to the femur. All I used cautery to identify the piriformis start site and used this as a starting point for my boo cutter. I then used a Charnley awl to identify the canal and a curved curette to remove the lateral bone. I then sequentially broached in the patient's natural version to a size __#6, 127deg__ and placed my trial implants. I took the hip through range of motion with a +0 head and I was satisfied with the stability and length. Therefore removed all instrumentation copiously irrigated placed my final femoral implant. I again took the hip through range of motion and was satisfied with the stability and length using a +2.5 head and so my final femoral head was placed. I then irrigated for 3 minutes with iodine and placed 1 g of local TXA. I then performed a capsular closure with FiberWire, Jude's fascia with 0 Vicryl, subcuticular with 2-0 vicryl and skin with leana. Patient was placed into a sterile dressing. Radiographs were obtained at the completion of the case and I was happy with the component position. Patient was extubated brought to the recovery room in stable condition.
[2020-09-09 17:49] LABS: Glucose, Whole Blood 174 mg/dL (60-115)
[2020-09-09 19:03] VITALS: BP 104/51; PULSE 73; RESP 16; TEMP 36.2; O2SAT 98
[2020-09-09 20:17] LABS: Glucose, Whole Blood 107 mg/dL (60-115)
[2020-09-09] MEDS: 0.9 % Sodium Chloride Flush 3 ML SYRINGE IVFLUSH (20:23)
[2020-09-09] MEDS: clonazePAM 1 MG TABLET 4 MG PO (20:23)
[2020-09-09 23:33] VITALS: BP 110/55; PULSE 75; RESP 18; TEMP 36; O2SAT 98
[2020-09-10] MEDS: Lactated Ringers 1,000 ML 125 ML IVCONT (02:17)
[2020-09-10 03:41] VITALS: BP 114/53; PULSE 73; RESP 16; TEMP 36.4; O2SAT 98
[2020-09-10] MEDS: Omeprazole 40 MG CAPSULE.DR PO (06:00)
[2020-09-10 07:09] LABS: Anion Gap 10 (12-20); Blood Urea Nitrogen 8 mg/dL (9-16); Carbon Dioxide 24 mmol/L (22-29); Chloride 112 mmol/L (96-108); Creatinine Clr Calc Pharmacy 116.5; Estimated Glomerular Filt Rate > 60; Glucose Fasting 93 mg/dL (60-99); Sodium 142 mmol/L (135-145)
[2020-09-10 07:32] VITALS: BP 111/47; PULSE 68; RESP 18; TEMP 36; O2SAT 98
[2020-09-10 07:53] LABS: Glucose, Whole Blood 88 mg/dL (60-115)
[2020-09-10] MEDS: Enoxaparin Sodium 40 MG/0.4 ML SYRINGE SUBCUT (08:03)
[2020-09-10] MEDS: Docusate Sodium 100 MG CAPSULE PO (08:03)
[2020-09-10] MEDS: Amphetamine Mixed Salts 20 MG TABLET PO ×2 (08:03→12:16)
[2020-09-10] MEDS: Vortioxetine Hydrobromide 20 MG TABLET PO (08:03)
[2020-09-10] MEDS: clonazePAM 1 MG TABLET 2 MG PO (08:03)
[2020-09-10] MEDS: oxyCODONE HCl Immed Release 5 MG TABLET PO ×2 (08:04→12:19)
[2020-09-10] MEDS: Topiramate 25 MG TABLET 50 MG PO (08:04)
[2020-09-10] MEDS: Acetaminophen 325 MG TABLET 650 MG PO ×2 (08:04→14:39)
--- NOTE | 2020-09-10 08:34 | P.DS_ITS ---
DS: Providers Provider Date of Service: 09/10/20 Date of admission: 09/07/20 07:46 Primary care physician: Yuliya Wells MD Consults: 09/07/20 15:44 Consult to Hospitalist Routine Consulting Provider: Hospitalist Reason For Exam: post op medical management DS: Diagnosis Discharge Diagnosis (1) Status post total hip replacement, left: Status: Acute Problem details: Ms. Zamarripa is a 55 yo female who presented to the office with ongoing left hip pain. She was found to have OA of the left hip and had failed all conservative treatment. She continued to have difficulty with ambulation and daily activities; therefore she consented to move forward with left total hip arthroplasty. DS: Medications Discharge Medications Home Medications: Home Medications Medication Instructions Recorded Confirmed clonazepam 2 mg tablet 2 mg PO QAM 01/21/20 09/01/20 dextroamphetamine-amphetamine 20 1 tab PO TID 01/21/20 09/01/20 mg tablet lurasidone 120 mg tablet 120 mg PO DAILY@1700 01/21/20 09/01/20 metformin 500 mg tablet,extended 500 mg PO BEDTIME 01/21/20 09/01/20 release 24 hr topiramate 50 mg tablet 50 mg PO BID 01/21/20 09/01/20 vortioxetine 20 mg tablet 20 mg PO QAM 01/21/20 09/07/20 clonazepam 4 mg PO QPM 08/27/20 09/01/20 inulin [Fiber Gummies] 2 g PO QAM 08/27/20 09/01/20 iron,qeijqfuy-JC-ctgqlxsg-min 1 tab PO DAILY 08/27/20 09/01/20 [Opurity Multivitamin] omeprazole 40 mg PO QAM 08/27/20 09/01/20 Previous Rx's Medication Instructions Recorded walker #1 ea 08/17/20 miscellaneous medical supply #1 ea 09/03/20 oxycodone 5 mg PO Q4H PRN 7 Days #42 tab 09/10/20 DS: Summary Hospital Course Hospital Course: The patient underwent a successful left total hip arthroplasty, they were transferred to PACU and then to the floor to recover. During their stay, their vitals were stable, afebrile at 97.6. Labs were unremarkable, H/H 10.4/31.9. POD 1 they were started on Lovenox for DVT ppx, they also received Physical Therapy services twice a day. Prior to discharge, their dressing was changed, incision clean dry and intact, new Aquacel dressing applied and the plan was to be discharged to rehab. Time Spent with Patient Time attestation: Total time spent providing and/or coordinating discharge services: Discharge coordination time: Less than 30 minutes Quality: Stroke Does the patient have a stroke diagnosis?: No Physical Exam Vital Signs: Vital Signs: Last Vital Signs Temp 96.8 F 09/10/20 07:32 Pulse 68 09/10/20 07:32 Resp 18 09/10/20 07:32 BP 111/47 L 09/10/20 07:32 Pulse Ox 98 09/10/20 07:32 Body Mass Index 37.8 Const: General: cooperative, healthy appearing and no acute distress Resp: Effort & Inspection: normal respiratory effort and able to speak in complete sentences Cardio: Rate: regular rate Peripheral pulses: Peripheral pulses 2+ throughout GI: Palpation (GI): Soft to palpation Skin: Lesions: no lesions Rashes: no rashes Extrem: Other: Left hip no ecchymosis, redness, or drainage. [place] intact. NVI. New Aquacel dressing applied. DS: Data Data Completed and Pending Pending studies at discharge: Pending at discharge 09/07/20 13:47 Surgical [PTH] Routine Labs on day of discharge: Laboratory Results - last 24 hr 09/09/20 09/09/20 09/09/20 11:08 16:08 17:45 Sodium Potassium Chloride Carbon Dioxide Anion Gap BUN Creatinine Estim Creat Clear Calc Estimated GFR POC Glucose 120 H 64 174 H Fasting Glucose Calcium 09/09/20 09/10/20 09/10/20 20:13 05:56 07:30 Sodium 142 Potassium 4.0 Chloride 112 H Carbon Dioxide 24 Anion Gap 10 L BUN 8 L Creatinine 0.62 Estim Creat Clear Calc 116.5 Estimated GFR > 60 POC Glucose 107 88 Fasting Glucose 93 Calcium 8.0 L Discharge Plan Discharge Patient Disposition: er SNF Discharge Diagnosis: LT DEE Referrals: Mague Cameron PA-C [Physician Practice Advisor] - None (09/23/20 1:30 [facility] Mague Cameron PA-C) Discharge Medications: New acetaminophen 325 mg Tablet 650 mg PO Q6H PRN (Reason: Pain, Mild (Pain Scale 1-3)) 30 Days Qty: 240 RF: 0 docusate sodium 100 mg Capsule 100 mg PO BID 14 Days Qty: 28 RF: 0 enoxaparin 40 mg/0.4 mL Syringe 40 mg subcut Q24H 42 Days Qty: 16.8 RF: 0 oxycodone 5 mg Tablet 5 mg PO Q4H PRN (Reason: Pain, Moderate (Pain Scale 4-6) 7 Days Qty: 42 RF: 0 Continued (DME) miscellaneous medical supply Misc See Rx Instructions .ROUTE .MEDSUPPLY Qty: 1 RF: 0 clonazepam 2 mg tablet 4 mg PO QPM RF: 0 omeprazole 20 mg capsule,delayed release(DR/EC) 40 mg PO QAM RF: 0 Opurity Multivitamin 30 mg iron- 800 mcg Tablet,Chewable 1 tab PO DAILY RF: 0 Fiber Gummies 2 gram Tablet,Chewable 2 g PO QAM RF: 0 dextroamphetamine-amphetamine 20 mg tablet 1 tab PO TID RF: 0 vortioxetine 20 mg tablet 20 mg PO QAM RF: 0 lurasidone 120 mg tablet 120 mg PO DAILY@1700 RF: 0 clonazepam 2 mg tablet 2 mg PO QAM RF: 0 metformin 500 mg tablet extended release 24 hr 500 mg PO BEDTIME RF: 0 topiramate 50 mg tablet 50 mg PO BID RF: 0 (DME) [facility]er [facility] See Rx Instructions .ROUTE .MEDSUPPLY Qty: 1 RF: 0 Discharge Orders: Discharge Order (Routine); Ordered 09/10/20 Ordered By: Hien Elkins Diet: regular diet Activity on Discharge: Use cane or walker Stand Alone Forms: Patient Portal Discharge page Care Plan Goals: Restore function of joint Health Concerns: None Plan of Treatment: Physical Therapy Pain management DVT prophylaxis Assessment: * Physical Therapy for Total hip arthroplasty: posterior precautions, gait training, ROM, strength * Limit stair climbing * No showering, no tub bath-keep dressing clean, dry and intact * No driving x6 weeks * Continue Lovenox once a day x 6 weeks * Follow up with [facility] in 2 weeks
--- NOTE | 2020-09-10 10:16 | HO.PM.IMPN ---
Subjective Subjective Date of Service: 09/10/20 Interval History: no complaints, anticipates d/c to STR today no chest pain or dyspnea tolerating PO BP improved Physical Exam Vital Signs: Vital Signs: Last Vital Signs Temp 96.8 F 09/10/20 07:32 Pulse 68 09/10/20 07:32 Resp 18 09/10/20 07:32 BP 111/47 L 09/10/20 07:32 Pulse Ox 98 09/10/20 07:32 Body Mass Index 37.8 Gen: in no acute distress Lungs: clear to auscultation bilaterally Heart: regular rate and rhythm, no murmurs Abd: soft, obese, non-tender, non-distended Ext: no edema Skin: warm/well-perfused Neuro: alert and oriented x3, no focal findings Psych: appropriate affect Objective Data Current Medications Generic Name Dose Route Start Last Admin Trade Name Freq PRN Reason Stop Dose Admin Acetaminophen 650 mg 09/07/20 15:44 09/10/20 08:04 Acetaminophen 325 Mg Tablet PO 650 mg Q6H PRN Administration Pain, Mild (Pain Scale 1-3) Amphetamine/Dextroamphetamine 20 mg 09/08/20 07:30 09/10/20 08:03 Amphetamine Mixed Salts 20 Mg Tablet PO 20 mg TIDAC MELBA Administration Clonazepam 2 mg 09/08/20 09:00 09/10/20 08:03 Clonazepam 1 Mg Tablet PO 2 mg DAILY MELBA Administration Clonazepam 4 mg 09/08/20 00:15 09/09/20 20:23 Clonazepam 1 Mg Tablet PO 4 mg BEDTIME MELBA Administration Docusate Sodium 100 mg 09/07/20 21:00 09/10/20 08:03 Docusate Sodium 100 Mg Capsule PO 100 mg BID MELBA Administration Enoxaparin Sodium 40 mg 09/08/20 07:45 09/10/20 08:03 Enoxaparin Sodium 40 Mg/0.4 Ml Syringe SUBCUT 40 mg Q24H MLEBA Administration Lactated Ringer's 1,000 mls @ 125 mls/hr 09/08/20 08:30 09/10/20 09:17 Lr IVCONT Infused .Q8H MELBA Infusion Insulin Human Lispro 0 unit 09/08/20 07:30 09/10/20 07:34 Insulin Lispro 100 Unit/Ml 3 Ml Vial SUBCUT Not Given QIDACHS [facility] Protocol Lurasidone HCl 120 mg 06/23/21 17:00 09/09/20 16:21 Lurasidone Hcl 40 Mg Tablet PO 120 mg DAILY@1700 [facility] Administration Multivitamins/Minerals 1 tab 09/08/20 09:00 09/10/20 08:03 Multivitamin With Minerals Tablet PO 1 tab DAILY MELBA Administration Omeprazole 40 mg 09/08/20 06:30 09/10/20 06:00 Omeprazole 40 Mg Capsule.Dr PO 40 mg DAILY@0630 [facility] Administration Ondansetron HCl 4 mg 09/07/20 15:44 Ondansetron Hcl 4 Mg/2 Ml Vial IVPUSH Q8H PRN Nausea and Vomiting Oxycodone HCl 5 mg 09/07/20 15:44 09/10/20 08:04 Oxycodone Hcl Immed Release 5 Mg Tablet PO 5 mg Q4H PRN Administration Pain, Moderate (Pain Scale 4-6 Sodium Chloride 3 ml 09/07/20 16:00 09/10/20 07:04 0.9 % Sodium Chloride Flush 3 Ml Syringe IVFLUSH Not Given QSHIFT [facility] Topiramate 50 mg 09/08/20 09:00 09/10/20 08:04 Topiramate 25 Mg Tablet PO 50 mg BID [facility] Administration Vortioxetine 20 mg 09/08/20 09:00 09/10/20 08:03 Vortioxetine Hydrobromide 20 Mg Tablet PO 20 mg DAILY [facility] Administration Labs CBC & Chem 7: 09/08/20 06:06 09/10/20 05:56 Labs: Laboratory Results - last 24 hr 09/09/20 09/09/20 09/09/20 11:08 16:08 17:45 Sodium Potassium Chloride Carbon Dioxide Anion Gap BUN Creatinine Estim Creat Clear Calc Estimated GFR POC Glucose 120 H 64 174 H Fasting Glucose Calcium 09/09/20 09/10/20 09/10/20 20:13 05:56 07:30 Sodium 142 Potassium 4.0 Chloride 112 H Carbon Dioxide 24 Anion Gap 10 L BUN 8 L Creatinine 0.62 Estim Creat Clear Calc 116.5 Estimated GFR > 60 POC Glucose 107 88 Fasting Glucose 93 Calcium 8.0 L Quality Stroke Does the patient have a stroke diagnosis?: No VTE Prior VTE?: No VTE Risk Level:: Surgical - high VTE Device Contraindication: N/A - Device Ordered VTE Drug Contraindication: N/A - Med Ordered Assessment and Plan (1) Osteoarthritis of left hip: Assessment and Plan: 55yo F with PMHx diabetes, anxiety, depression, mood disorder, CVA, conversion disorder, history of bilateral knee replacement, history of gastric bypass POD #1 L DEE for OA medical consultation for management of comorbid conditions # postop hypotension - due to anesthesia; improved # hx DM2 - BGs well-controlled, has not required correction-dose lispro. resume MTF upon d/c # mood disorder - continue Adderall, lurasidone, vortioxetine, topiramate, clonazepam # VTE ppx - continue LMWH, extended ppx 28d postop
[2020-09-10 10:24] LABS: Hematocrit 28.3 % (37-47); Hemoglobin 9.4 g/dl (12.0-16.0)
[2020-09-10 11:18] VITALS: BP 103/53; PULSE 69; RESP 18; TEMP 36; O2SAT 97
[2020-09-10 11:53] LABS: Glucose, Whole Blood 76 mg/dL (60-115)
--- NOTE | 2020-09-10 11:55 | MHC.CM.PN ---
PT DISCHARGING TODAY AT 1:30PM TO [facility] PENDING INSURANCE AUTH, [facility] FOR BLS TRANSPORT.
== END 2020-09-10 16:40 | disposition skilled nursing facility (03) | DRG 470 ==
LOC: HO.SSSA 07:54 → HO.S3 14:46
PROVIDERS: Physician Assistant; Admitting Provider Orthopaedic Surgery; PCP Internal Medicine; Visit Provider Orthopaedic Surgery
PROC: 0SRB0JA Replacement of Left Hip Joint with Synthetic Substitute, Uncemented, Open Approach (ICD-10-PCS; CPT 27130; principal; 2020-09-07 12:30)
DX: M16.12 Unilateral primary osteoarthritis, left hip (principal); Z96.653 Presence of artificial knee joint, bilateral; E11.9 Type 2 diabetes mellitus without complications; F32.9 Major depressive disorder, single episode, unspecified; F41.9 Anxiety disorder, unspecified; Z20.822 Contact with and (suspected) exposure to COVID-19; Z98.84 Bariatric surgery status; Z88.2 Allergy status to sulfonamides; Z79.84 Long term (current) use of oral hypoglycemic drugs; Z79.899 Other long term (current) drug therapy; Z86.73 Personal history of transient ischemic attack (TIA), and cerebral infarction without residual deficits
CPT/HCPCS: 36415; 72170; 80048; 80061; 82306; 82607; 82746; 82947; 83525; 84425; 84439; 84443; 84590; 84630; 85014; 85018; 85025; 86140; 86850; 86900; 86901; 87635; 87640; 87641; 88304; 88311; 97110; 97116; 97162; 97166; 97530; 97535; C1713; C1776; J0131; J1100; J1650; J2250; J2405; J3010; J3370

== ENCOUNTER → 2020-09-23 13:28 | Outpatient (BNVA) | payer OTHER, SELFPAY | PROVIDERS: Visit Provider Physician Assistant ==

== ENCOUNTER → 2020-10-21 12:09 | Outpatient (BNVA) | payer OTHER, SELFPAY | PROVIDERS: PCP Internal Medicine; Visit Provider Orthopaedic Surgery ==

== ENCOUNTER → 2020-11-15 08:10 | Outpatient (BNVA) | payer OTHER, SELFPAY | PROVIDERS: PCP Internal Medicine; Visit Provider Physician Assistant ==

== ENCOUNTER 2020-11-29 08:00 | Outpatient (REF) | payer OTHER, SELFPAY ==
--- NOTE | ~2020-11-29 | XR_ITS ---
EXAMINATION: XR PELVIS AND LEFT HIP CLINICAL INFORMATION: Left hip pain. COMPARISON: 09/07/2020 TECHNIQUE: Single view pelvis with 1 additional view left hip. FINDINGS: A total hip prosthesis is present on the left. Mild degenerative changes are present in the right hip. Surgical clips are seen in the left iliac fossa. No hip fracture or dislocation is seen. Hardware appears intact. Degenerative changes are seen at L5-S1. XR/XR pelvis 1-2V IMPRESSION: Left hip prosthesis appears intact with no acute finding. Mild degenerative changes right hip.
--- NOTE | ~2020-11-29 | XR_ITS ---
EXAMINATION: XR PELVIS AND LEFT HIP CLINICAL INFORMATION: Left hip pain. COMPARISON: 09/07/2020 TECHNIQUE: Single view pelvis with 1 additional view left hip. FINDINGS: A total hip prosthesis is present on the left. Mild degenerative changes are present in the right hip. Surgical clips are seen in the left iliac fossa. No hip fracture or dislocation is seen. Hardware appears intact. Degenerative changes are seen at L5-S1. XR/XR hip LT 1V IMPRESSION: Left hip prosthesis appears intact with no acute finding. Mild degenerative changes right hip.
== END 2020-11-29 08:01 | disposition home or self-care (01) ==
LOC: HO.HOSX 08:00
PROVIDERS: Visit Provider Orthopaedic Surgery
DX: Z47.1 Aftercare following joint replacement surgery (principal); Z96.642 Presence of left artificial hip joint
CPT/HCPCS: 72170; 73501

== ENCOUNTER 2021-01-13 07:00 | Outpatient (RCR) | payer OTHER, SELFPAY ==
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
--- NOTE | 2021-01-19 13:36 | MHC.PT.DC ---
[facility] [place] Office [place] Office [place] Office [address] Davon Alford [address] [phone] F: [phone] F: [phone] F: [phone] F: [phone] Physical Therapy Discharge Report Diagnosis: This is a 55 yo female presenting to skilled PT with a script for s/p L DEE. Date of Surgery: 09/09/20 Date of Evaluation: 10/28/20 Date of Discharge: 01/19/21 Treatments to Date: 22 Cancellations to Date: 0 No Shows to Date: 0 Discharge Status: Achieved Goals Improved Function Independent with HEP Discharge Summary: I with HEP. able to demo good squat mechanics without cues, no AD with ambulation and reciprocal gait pattern on stairs. LEFS improved by > 10 pts. Pain at worst is 2/10. Pt has been able to sleep pain free. She is appropriate to d/c to her HEP at this time. LEFS 48/80. DC to HEP Electronically signed by: Sharron Acosta PT Please sign and return to therapist. Thank you for your referral.
== END 2021-01-19 13:36 | disposition home or self-care (01) ==
LOC: HO.PTCHIC 07:00
PROVIDERS: PCP Internal Medicine; Visit Provider Orthopaedic Surgery
DX: Z96.642 Presence of left artificial hip joint (principal)
CPT/HCPCS: 97110; 97140; 97162; 97530

== ENCOUNTER → 2021-03-09 08:05 | Outpatient (BNVA) | payer OTHER, SELFPAY | PROVIDERS: PCP Internal Medicine; Visit Provider Physician Assistant ==

== ENCOUNTER → 2021-03-22 08:00 | Outpatient (BNVA) | payer OTHER, SELFPAY | PROVIDERS: PCP Internal Medicine; Visit Provider Physician Assistant ==

== ENCOUNTER 2021-05-23 12:17 | Outpatient (REF) | payer OTHER, SELFPAY ==
--- NOTE | ~2021-05-23 | XR_ITS ---
EXAMINATION: XR PELVIS CLINICAL INFORMATION: Pain COMPARISON: Hip and pelvis radiographs 11/29/2020 TECHNIQUE: AP view of the pelvis. XR/XR pelvis 1-2V FINDINGS/IMPRESSION: No acute fracture or dislocation. Status post left total hip arthroplasty. No evidence of hardware fracture or complication. Surgical clips in the pelvis again seen. Mild degenerative changes of the right hip with acetabular spurring similar to prior. Degenerative disc disease of the visualized lumbosacral spine. Mild to moderate degenerative changes of the sacroiliac joints with suspected joint space narrowing, which could be better characterized with dedicated SI radiographs if warranted. Soft tissues are unremarkable.
== END 2021-05-23 12:18 | disposition home or self-care (01) ==
LOC: HO.HOSX 12:17
PROVIDERS: Visit Provider Orthopaedic Surgery
DX: Z47.1 Aftercare following joint replacement surgery (principal); M48.062 Spinal stenosis, lumbar region with neurogenic claudication; Z96.642 Presence of left artificial hip joint
CPT/HCPCS: 72170

== ENCOUNTER 2021-06-09 17:57 | Outpatient (REF) | payer OTHER, SELFPAY ==
--- NOTE | ~2021-06-09 | MR_ITS ---
EXAMINATION: MR LUMBAR SPINE WITHOUT CONTRAST CLINICAL INFORMATION: Bilateral leg weakness and pain. Low back pain. COMPARISON: None TECHNIQUE: MRI of the lumbar spine was obtained using routine sequences without contrast. FINDINGS: VERTEBRAL BODIES AND PARASPINAL STRUCTURES: The marrow signal is within normal limits. Bulky anterior endplate spurring noted at the lower thoracic and upper lumbar levels. There is a mild retrosubluxation at the L2-L3 level. Multilevel reduced intradiscal signal evident as a result of degeneration. There are no compression fractures or anterior subluxations. No marrow edema identified. The paraspinal soft tissues appear normal. Small right renal cyst noted. There are [id number] degenerative changes of the sacroiliac joints bilaterally. CONUS MEDULLARIS AND CAUDA EQUINA: Normal, terminating at the level of L2. No lower cord signal abnormality is seen. The cauda equina nerve roots are normal. SPINAL LEVELS: L1-L2: Bulky anterior endplate spurring. No focal disc protrusion, central canal stenosis, or foraminal narrowing. L2-L3: Disc degeneration and retrosubluxation with a diffuse disc bulge and hypertrophic facet arthropathy. No central canal stenosis. Moderate bilateral foraminal narrowing. L3-L4: Mild diffuse disc bulge and moderate facet arthropathy with mild central canal stenosis. [id number] bilateral foraminal narrowing. L4-L5: Disc degeneration and exuberant facet arthropathy with very mild narrowing of the central canal. Facet spurring impinges upon the exiting right L4 nerve root. There is also hypertrophic bony spurring on the left side, which distorts the exiting left L4 nerve root with significant encroachment. L5-S1: Significant facet arthropathy. No focal disc protrusion. Right posterolateral annular fissure evident with bulging disc and osseous spurring resulting in moderate to severe foraminal encroachment and distortion of the exiting right L5 nerve root. Endplate spurring anterolaterally impresses upon the extraforaminal left L5 nerve root. MR/MR lumbar spine wo con IMPRESSION: Moderate bilateral foraminal narrowing and disc space narrowing with a slight retrosubluxation at the L2-L3 level. Mild central canal stenosis and [id number]-[id number] foraminal narrowing at the L3-L4 level. Exuberant facet arthropathy impinging upon both exiting L4 nerve roots with significant bilateral foraminal encroachment at the L4-L5 level. Slight narrowing of the central canal. Significant facet degeneration at the L5-S1 level with a mild disc bulge and osseous spurring resulting in significant right foraminal encroachment and distortion of the right L5 nerve root. Bulky left lateral endplate spurring impresses upon the extraforaminal left L5 nerve root.
== END 2021-06-09 17:58 | disposition home or self-care (01) ==
LOC: HO.MRI 17:57
PROVIDERS: Visit Provider Orthopaedic Surgery
DX: M48.062 Spinal stenosis, lumbar region with neurogenic claudication (principal)
CPT/HCPCS: 72148

== ENCOUNTER → 2021-06-15 08:01 | Outpatient (BNVA) | payer OTHER, SELFPAY | PROVIDERS: PCP Internal Medicine; Visit Provider Nurse Practitioner Family | DX: Z13.89 Encounter for screening for other disorder (principal) ==

== ENCOUNTER 2021-06-23 16:02 | Outpatient (REF) | payer OTHER, SELFPAY ==
--- NOTE | ~2021-06-23 | MM_ITS ---
EXAMINATION: MM SCREENING DIGITAL BREAST TOMOSYNTHESIS, BILATERAL CLINICAL INFORMATION: Screening. Asymptomatic. The lifetime risk of breast cancer based on the Tyrer-Cuzick Model is 8.7%. COMPARISON: Mammography: November 20, 2019 and studies dating back to January 06, 2015 TECHNIQUE: Digital breast tomosynthesis is performed in both the craniocaudal and mediolateral oblique views along with computer-aided detection (CAD). Synthesized 2D images are generated from the tomosynthesis. FINDINGS: The breasts are almost entirely fatty (ACR BI-RADS breast composition Category a). There are no significant masses, abnormal calcifications, or other abnormalities. MM/MM tomosynthesis screening BI IMPRESSION: There are no significant changes from prior study. ASSESSMENT: BI-RADS 1: Negative RECOMMENDATION: Routine annual mammography screening. This patient's information was entered into a reminder system with a target due date for their next mammogram.
== END 2021-06-23 16:03 | disposition home or self-care (01) ==
LOC: HO.MAMMO 16:02
PROVIDERS: PCP Internal Medicine; Visit Provider Internal Medicine
DX: Z12.31 Encounter for screening mammogram for malignant neoplasm of breast (principal)
CPT/HCPCS: 77063; 77067

== ENCOUNTER 2021-06-28 09:04 | Outpatient (REF) | payer OTHER, SELFPAY ==
[2021-06-28 11:25] LABS: MANUAL DIFF FLAG NO
[2021-06-28 11:33] LABS: Basophils Percent Auto 0.3 % (0-2); Eosinophils Absolute Auto 0.1 X10*3/uL (0.0-0.4); Eosinophils Percent Auto 0.8 % (0-4); Hematocrit 41.7 % (37.0-47.0); Hemoglobin 13.9 g/dl (12.0-16.0); Imm Gran Abs Auto 0.01 X10*3/uL (0.00-0.03); Imm Gran Pct Auto 0.2 % (0.0-0.4); Lymphocytes Percent Auto 32.8 % (20-40); Mean Corpuscular HGB Conc 33.3 g/dl (31.0-35.0); Mean Corpuscular Hemoglobin 30.1 pg (27.0-33.0); Mean Corpuscular Volume 90.3 fL (80.0-98.0); Mean Platelet Volume 10.3 fL (9.4-12.3); Monocytes Absolute Auto 0.4 X10*3/uL (0.1-1.2); Monocytes Percent Auto 5.7 % (2-11); Neutrophils Absolute Auto 3.7 x10*3/uL (2.0-8.3); Neutrophils Percent Auto 60.2 % (45-73); Platelet Count 240 X10*3/uL (160-400); Red Blood Count 4.62 X10*6/uL (4.20-5.50); White Blood Count 6.2 X10*3/uL (4.8-10.8)
[2021-06-28 11:51] LABS: Alanine Aminotransferase 23 U/L (0-31); Albumin Level 3.8 g/dL (3.5-5.0); Alkaline Phosphatase 46 U/L (39-117); Anion Gap 12 (12-20); Aspartate Amino Transferase 25 U/L (5-31); Bilirubin Total 0.5 mg/dL (0.0-1.0); Blood Urea Nitrogen 13 mg/dL (9-16); Calcium 9.4 mg/dL (8.4-10.2); Carbon Dioxide 24 mmol/L (22-29); Chloride 109 mmol/L (96-108); Estimated Glomerular Filt Rate > 60; Glucose Random 105 mg/dL (60-115); Potassium 3.9 mmol/L (3.3-5.1); Sodium 141 mmol/L (135-145); Total Protein 6.6 g/dL (6.5-8.0)
[2021-06-28 12:12] LABS: TSH reflex Free T4 0.58 uIU/mL (0.32-4.0)
== END 2021-06-28 09:05 | disposition home or self-care (01) ==
LOC: HO.HMGCLDS 09:04
PROVIDERS: Visit Provider Internal Medicine
DX: D64.9 Anemia, unspecified (principal); E66.9 Obesity, unspecified; F41.1 Generalized anxiety disorder; R79.89 Other specified abnormal findings of blood chemistry; Z98.84 Bariatric surgery status
CPT/HCPCS: 36415; 80053; 84443; 85025

== ENCOUNTER 2021-11-01 06:13 | Outpatient (REF) | payer OTHER, SELFPAY ==
--- NOTE | ~2021-11-01 | FL_ITS ---
EXAMINATION: XR FLUOROSCOPY WITH IMAGES CLINICAL INFORMATION: M53.3 - Sacrococcygeal disorders, not elsewhere classified COMPARISON: Pelvic radiographs 05/23/2021 TECHNIQUE: Fluoroscopy performed by Dr. Forrest Lee. Fluoroscopy time: 0.4 minutes. Cumulative Dose: 7.27 mGy. DAP: 1.98 Gy-cm2. Images: 2. FINDINGS: Spinal needle overlies bilateral mid to lower SI joints joints. There is contrast in the periarticular soft tissues with probable early intra-articular contrast. There are degenerative changes lower lumbar spine. FL/FL guidance in treatment room IMPRESSION: Fluoroscopy for pain management procedure.
== END 2021-11-01 06:14 | disposition home or self-care (01) ==
LOC: HO.RADIR 06:13
PROVIDERS: Visit Provider Anesthesiology
DX: M53.3 Sacrococcygeal disorders, not elsewhere classified (principal)
CPT/HCPCS: 27096; J2795; Q9967

== ENCOUNTER 2021-12-09 08:04 | Day surgery (SDC) | payer OTHER, SELFPAY ==
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
[2021-12-09 06:48] VITALS: BMI 35.4
[2021-12-09 08:09] VITALS: BP 129/85; PULSE 72; RESP 18; TEMP 36.1; O2SAT 97
[2021-12-09] MEDS: Lactated Ringers 1,000 ML 100 ML IVCONT (08:39)
[2021-12-09 10:03] VITALS: BP 109/64; PULSE 62; RESP 16; O2SAT 100
--- NOTE | 2021-12-09 10:06 | PM.OP ---
Brief Operative Note Date of Service: 12/09/21 Pre-op diagnosis: Screening Post-op diagnosis: other (Diverticulosis) Procedure: Colonoscopy to the cecum and TI Surgeon: Ward Lockhart Anesthesia: MAC Was an Phlebotomist Medical Lab Assistant used for this Procedure?: No Estimated blood loss (mL): 0 Pathology: none sent Condition: stable Disposition: PACU
[2021-12-09 10:18] VITALS: BP 115/67; PULSE 68; RESP 16; TEMP 36.1; O2SAT 98
--- NOTE | 2021-12-09 22:03 | OP_ITS ---
SURGEON: Ward Lockhart MD INDICATIONS: The patient presents for evaluation of colorectal cancer screening. Full consent has been obtained from her for this, including risks of bleeding and perforation. PREOPERATIVE DIAGNOSIS: Colorectal cancer screening. POSTOPERATIVE DIAGNOSIS: PROCEDURE PERFORMED: Colonoscopy to the cecum and terminal ileum. ESTIMATED BLOOD LOSS: COMPLICATIONS: ANESTHESIA: Monitored anesthesia care. ASSISTANTS: SPECIMENS: POSTOPERATIVE DIAGNOSES: Colorectal cancer screening, sigmoid diverticulosis, and internal hemorrhoids. DESCRIPTION OF PROCEDURE: The patient was placed in the left lateral decubitus position. The digital rectal exam revealed no abnormalities. The Olympus video pediatric colonoscope was entered into the rectum and advanced to the cecum with the assistance of abdominal pressure. Once in the cecum, I did identify a normal-appearing cecal pouch with appendiceal orifice and a normal-appearing ileocecal valve. The terminal ileum was cannulated and appeared normal. Scope was withdrawn back in the colon. The entire cecum and ileocecal valve appeared normal. The scope was slowly withdrawn assessing all mucosal surfaces carefully. Preparation was excellent. I did not visualize any sign of polyps, colitis, or angiodysplasia. There was a mild amount of sigmoid diverticulosis. In the rectum, scope was retroflexed visualizing internal hemorrhoids but no other pathology. The rectal mucosa appeared normal. The scope was straightened and withdrawn from the patient. She tolerated the procedure well and was returned to the recovery area in stable condition. IMPRESSION: 1. Sigmoid diverticulosis. 2. Internal hemorrhoids. PLAN: Given today's negative colonoscopy and negative family history, I would recommend a repeat colonoscopy in 10 years for further screening. She will otherwise see me on a p.r.n. basis. Ward Lockhart MD RMChris/MAYKEL / [phone]
== END 2021-12-09 11:10 | disposition home or self-care (01) ==
PROVIDERS: PCP Internal Medicine; Visit Provider Internal Medicine
PROC: 0DJD8ZZ Inspection of Lower Intestinal Tract, Via Natural or Artificial Opening Endoscopic (ICD-10-PCS; CPT 45378; principal; 2021-12-09 09:20)
DX: Z12.11 Encounter for screening for malignant neoplasm of colon (principal); K57.30 Diverticulosis of large intestine without perforation or abscess without bleeding; K64.8 Other hemorrhoids; K58.9 Irritable bowel syndrome, unspecified; K21.9 Gastro-esophageal reflux disease without esophagitis; F32.A Depression, unspecified; F41.1 Generalized anxiety disorder; Z86.711 Personal history of pulmonary embolism; Z79.01 Long term (current) use of anticoagulants; Z79.899 Other long term (current) drug therapy; Z90.49 Acquired absence of other specified parts of digestive tract; Z98.84 Bariatric surgery status; Z88.2 Allergy status to sulfonamides; Z88.8 Allergy status to other drugs, medicaments and biological substances
CPT/HCPCS: 45378; J2370; J3010

== ENCOUNTER 2021-12-27 05:59 | Outpatient (REF) | payer OTHER, SELFPAY ==
--- NOTE | ~2021-12-27 | FL_ITS ---
EXAMINATION: XR FLUOROSCOPY WITH IMAGES CLINICAL INFORMATION: Sacroiliitis. COMPARISON: 11/01/2021 TECHNIQUE: Fluoroscopy performed by Dr. Forrest Lee. Fluoroscopy time: 0.5 minutes Cumulative Dose: 11.7 mGy DAP: 3.2 Gy-cm2 Images: 6 FINDINGS: Six images demonstrate placement of needles with contrast within adjacent tissues about the left sacrum. FL/FL guidance in treatment room IMPRESSION: Intraoperative fluoroscopy for orthopedic pain management procedure.
== END 2021-12-27 06:00 | disposition home or self-care (01) ==
LOC: CF 05:59
PROVIDERS: Visit Provider Anesthesiology
DX: M48.062 Spinal stenosis, lumbar region with neurogenic claudication (principal); M46.1 Sacroiliitis, not elsewhere classified; M53.3 Sacrococcygeal disorders, not elsewhere classified; M47.816 Spondylosis without myelopathy or radiculopathy, lumbar region
CPT/HCPCS: 64451; J2795; Q9965

== ENCOUNTER 2022-01-03 06:08 | Outpatient (REF) | payer OTHER, SELFPAY ==
--- NOTE | ~2022-01-03 | FL_ITS ---
EXAMINATION: XR FLUOROSCOPY WITH IMAGES CLINICAL INFORMATION: M53.3 - Sacrococcygeal disorders, not elsewhere classified COMPARISON: Pelvic radiographs 05/23/2021 TECHNIQUE: Fluoroscopy performed by Dr. Forrest Lee. Fluoroscopy time: 0.4 minutes. Cumulative Dose: 18.2 mGy. DAP: 4.98 Gy-cm2. Images: 2. FINDINGS: There are 3 spinal needles overlying the right sacral wing, each at 2 different positions between the 2 spot images. There is contrast seen in the soft tissues/nerve sheath. No visible vascular communication. FL/FL guidance in treatment room IMPRESSION: Fluoroscopy for pain management procedure.
== END 2022-01-03 06:09 | disposition home or self-care (01) ==
LOC: CF 06:08
PROVIDERS: Visit Provider Anesthesiology
DX: M46.1 Sacroiliitis, not elsewhere classified (principal); M53.3 Sacrococcygeal disorders, not elsewhere classified; M48.062 Spinal stenosis, lumbar region with neurogenic claudication; M47.816 Spondylosis without myelopathy or radiculopathy, lumbar region
CPT/HCPCS: 64451; J2795; J3300; Q9966; Q9967

== ENCOUNTER → 2022-06-07 15:16 | Outpatient (BNVA) | payer OTHER, SELFPAY | PROVIDERS: PCP Internal Medicine; Visit Provider Anesthesiology | DX: Z13.89 Encounter for screening for other disorder (principal) ==

== ENCOUNTER 2022-08-15 07:02 | Outpatient (REF) | payer OTHER, SELFPAY ==
[2022-08-15 12:12] LABS: Cholesterol 169 mg/dL; Glucose Fasting 93 mg/dL (60-99); HDL Cholesterol 65 mg/dL; LDL Cholesterol Calculated 65 mg/dl; Triglycerides 197 mg/dL
== END 2022-08-15 07:03 | disposition home or self-care (01) ==
LOC: HO.HMGCLDS 07:02
PROVIDERS: PCP Internal Medicine; Visit Provider Clinical Nurse Specialist Psychiatric/Mental Health, Adult
DX: Z79.899 Other long term (current) drug therapy (principal)
CPT/HCPCS: 36415; 80061; 82947

== ENCOUNTER 2022-09-01 15:20 | Outpatient (REF) | payer OTHER, SELFPAY ==
--- NOTE | ~2022-09-01 | MM_ITS ---
EXAMINATION: MM SCREENING DIGITAL BREAST TOMOSYNTHESIS, BILATERAL CLINICAL INFORMATION: Screening. Asymptomatic. The lifetime risk of breast cancer based on the Tyrer-Cuzick Model is 7%. COMPARISON: Mammography: 06/23/2021, 11/20/2019, 07/16/2018 TECHNIQUE: Digital breast tomosynthesis is performed in both the craniocaudal and mediolateral oblique views along with computer-aided detection (CAD). Synthesized 2D images are generated from the tomosynthesis. FINDINGS: The breasts are almost entirely fatty (ACR BI-RADS breast composition Category a). Background stromal markings and fibroglandular densities are stable. No developing density or architectural abnormality. There are scattered benign round and predominantly dermal calcifications scattered in both breasts. There are no significant masses, abnormal calcifications, or other abnormalities. The axilla are unremarkable. MM/MM tomosynthesis screening BI IMPRESSION: No mammographic evidence of malignancy. ASSESSMENT: BI-RADS 2: Benign RECOMMENDATION: Routine annual mammography screening. This patient's information was entered into a reminder system with a target due date for their next mammogram.
== END 2022-09-01 15:21 | disposition home or self-care (01) ==
LOC: HO.MAMMO 15:20
PROVIDERS: PCP Internal Medicine; Visit Provider Internal Medicine
DX: Z12.31 Encounter for screening mammogram for malignant neoplasm of breast (principal)
CPT/HCPCS: 77063; 77067

== ENCOUNTER 2023-03-28 07:47 | Outpatient (AMB) | payer OTHER, SELFPAY ==
[2023-03-28 08:12] VITALS: BP 110/74; PULSE 72; O2SAT 98; BMI 38.4
--- NOTE | 2023-03-28 08:12 | MHC.PC.OV ---
Vital Signs 03/28/23 08:12 Height 5 ft 7 in Weight 245 lb BMI 38.4 BP 110/74 Blood Pressure Location Lt brachial Position Sitting Pulse 72 Pulse Source Pulse Oximeter Pulse Oximetry (%) 98 Oxygen Delivery Method Room Air Intake Visit Reasons: Medication F/U Allergies cephalexin [From Keflex] Allergy (Severe, Verified 03/28/23 08:15) Anaphylaxis dicloxacillin Allergy (Severe, Verified 03/28/23 08:15) Anaphylaxis erythromycin base Allergy (Severe, Verified 03/28/23 08:15) Anaphylaxis gabapentin [From Neurontin] Allergy (Severe, Verified 03/28/23 08:15) Confusion, slurred speech hydrochlorothiazide [HYDROCHLOROTHIAZIDE] Allergy (Severe, Verified 03/28/23 08:15) Rash,Swelling,weakness, headaches, balance issues, dry mouth hydromorphone [From Dilaudid] Allergy (Severe, Verified 03/28/23 08:15) Anaphylaxis indomethacin [From Indocin] Allergy (Severe, Verified 03/28/23 08:15) Anaphylaxis morphine [MORPHINE] Allergy (Severe, Verified 03/28/23 08:15) Major hives, Sweats, Throat closes moxifloxacin [From Avelox] Allergy (Severe, Verified 03/28/23 08:15) Anaphylaxis Sulfa (Sulfonamide Antibiotics) [SULFA (SULFONAMIDE ANTIBIOTICS)] Allergy (Severe, Verified 03/28/23 08:15) SAID TO WATCH OUT, anaphylaxis sulfamethoxazole [From Bactrim] Allergy (Severe, Verified 03/28/23 08:15) Anaphylaxis trimethoprim [From Bactrim] Allergy (Severe, Verified 03/28/23 08:15) Anaphylaxis Doxycycline Hyclate Allergy (Severe, Uncoded 03/28/23 08:15) Anaphylaxis Tobacco use date assessed: 03/28/23 Dental Screening Dental Screen Date: 03/28/23 Did you have a dental visit in the last 12 months?: Yes Did you have a dental problem in the last 6 months where you did not have access to dental care?: No Was dental information given to patient?: Patient has dentist HPI Medication F/U HPI Details Patient is a 57-year-old female was last seen June of 2021 Patient have a history of bilateral knee replacement surgeries, she has multiple allergies to medications Patient went for her dental procedure and dentist sent her back to primary care saying she is allergic to too many medications so they can not figure out what to give her 4 antibiotic prophylaxis as she has had knee replacement surgeries. We had a detail discussion patient had surgeries in [phone] She said that she carry a card with her saying that she need a antibiotic prophylaxis for the rest of her life. I printed the new recommendations for antibiotic prophylaxis explained them to her and also gave her the copy so she can present that to her dentist There is no need for antibiotic prophylaxis anymore. She also need a letter for work which was provided Patient will book a physical exam appointment. [facility] Medical History Lymphedema of both lower extremities History of shingles History of CVA (cerebrovascular accident) without residual deficits Arthritis Pulmonary emboli Plantar fasciitis History of colitis Osteoarthritis of left hip Lymphedema Arthritis, hip Hip pointer Hip pain Surgical History Hx of gastric bypass Hx of laminectomy Hx laparoscopic cholecystectomy Hx of dilation and curettage History of umbilical hernia repair Hx of appendectomy Hx of total knee replacement Family History Mother No problems noted. Father No problems noted. 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 1. Little interest or pleasure in doing things: several days 2. Feeling down, depressed, or hopeless: several days 3. Trouble falling or staying asleep, or sleeping too much: not at all 4. Feeling tired or having little energy: several days 5. Poor appetite or overeating: not at all 6. Feeling bad about yourself - or that you are a failure or have let yourself or your family down: several days 7. Trouble concentrating on things, such as reading the newspaper or watching television: several days 8. Moving or speaking so slowly that other people could have noticed. Or the opposite - being so fidgety or restless that you have been moving around a lot more than usual: not at all 9. Thoughts that you would be better off or of hurting yourself in some way: not at all Total score: 5 Depression Screening Interpretation: Negative Depression Screening Done: Yes 67160 - PHQ-9 Billing: Yes Source: Developed by Drs. Ward Ledesma, Marta Caldera, Joe Stevenson and colleagues, with an educational pato from [employer]. Thrive Questionnaire Date Thrive assessed: 03/28/23 I am a: Patient What is your living situation today?: I have a steady place to live Within the past 12 months, did the food you bought not last and you didn't have the money to get more?: Often true Within the past 12 months, did you worry whether your food would run out before you got money to buy more?: Sometimes True Do you have trouble paying for medicines?: No Do you have trouble getting transportation to medical appointments?: No Do you have trouble paying your heating and electricity bill?: No Do you have trouble taking care of your child, family member or friend?: No Do you have trouble with day-to-day activities such as bathing, preparing meals, shopping, managing finances, etc.?: No Are you currently unemployed and looking for a job?: No Are you interested in more education?: No Please select the resources that you would like help with: None Currently or been in a relationship where the following occur: no concerns reported AUDIT C Alcohol Use Questionnaire (AUDIT-C) 1. How often do you have a drink containing alcohol?: Never 3. How often do you have six or more drinks on one occasion?: Never Total Score: 0 JOHN-7 AMB Questionnaire JOHN-7 Date JOHN - 7 assessed: 03/28/23 Feeling nervous, anxious, or on edge: 1 = Several days Not being able to stop or control worryin = Several days Worrying too much about different things: 1 = Several days Trouble relaxin = Several days Being so restless that it is hard to sit still: 1 = Several days Becoming easily annoyed or irritable: 1 = Several days Feeling afraid as if something awful might happen: 1 = Several days Total JOHN-7 score (0-4 normal; 5-9 mild; 10-14 moderate; 15-21 severe): 7 Source: Developed by Drs. Ward Ledesma, Marta Caldera, Joe Stevenson and colleagues, with an educational pato from [employer]. JOHN-7 Assessment Billing JOHN-7 Assessment Tool: JOHN-7 Assessment 85867 Review of Systems Const Denies chills and Denies fever(s) ENT Denies epistaxis and Denies nasal discharge Card Denies chest pain Resp Denies chest congestion, Denies cough and Denies hemoptysis GI Denies diarrhea and Denies nausea Skin/Breast Denies rash Neuro Reports no additional complaints Psych Reports no additional complaints Endo Reports no additional complaints Physical exam (Primary Care) Vital Signs: Last Vital Signs Pulse 72 03/28/23 08:12 BP 110/74 03/28/23 08:12 Pulse Ox 98 03/28/23 08:12 Oxygen Delivery Method Room Air 03/28/23 08:12 BMI result Body Mass Index 38.4 Tobacco/Smoking Status: Tobacco use Status Tobacco use date assessed 03/28/23 03/28/23 08:20 Patient Tobacco Use Status Never used Tobacco 03/28/23 08:20 PHQ-9: PHQ-9 Score PHQ-9: Total score 5 03/28/23 08:42 Depression Screening Interpretation: Negative Thrive Assessment: Date of Thrive Assessment Date Thrive assessed 03/28/23 03/28/23 08:37 Currently or been in a relationship where the following occur: no concerns reported Const General: cooperative, comfortable and no acute distress Orientation/consciousness: patient oriented x3 HENMT Head: Yes normocephalic Eyes General: appearance normal, both eyes and all related structures Neck Neck: Yes supple Resp Effort & Inspection: normal respiratory effort, no cough and no stridor Cardio Rhythm: regular rhythm Heart sounds: S1 normal heart sound present and S2 normal heart sound present Skin General skin exam: turgor normal Neuro General: patient oriented x3, tone normal and moves all extremities Extrem Right lower extremity: no edema Left lower extremity: no edema Assessment and Plan Assessment & Plan (1) History of knee replacement: Code(s): Z96.659 - Presence of unspecified artificial knee joint Qualifiers: Laterality: bilateral Qualified Code(s): Z96.653 - Presence of artificial knee joint, bilateral (2) Sacroiliitis: Code(s): M46.1 - Sacroiliitis, not elsewhere classified (3) Spinal stenosis, lumbar region, with neurogenic claudication: Code(s): M48.062 - Spinal stenosis, lumbar region with neurogenic claudication Plan Patient is a 57-year-old female was last seen June of 2021 who suffers from chronic back pain secondary to sacroiliitis Patient have a history of bilateral knee replacement surgeries, she has multiple allergies to medications Patient went for her dental procedure and dentist sent her back to primary care saying she is allergic to too many medications so they can not figure out what to give her 4 antibiotic prophylaxis as she has had knee replacement surgeries. We had a detail discussion patient had surgeries in [phone] She said that she carry a card with her saying that she need a antibiotic prophylaxis for the rest of her life. I printed the new recommendations for antibiotic prophylaxis explained them to her and also gave her the copy so she can present that to her dentist There is no need for antibiotic prophylaxis anymore. She also need a letter for work which was provided Patient will book a physical exam appointment. Coding Level of Care Code Est Pt Level 4 (72705) Diagnoses History of bilateral knee replacement Z96.653 Laterality: bilateral Sacroiliitis M46.1 Spinal stenosis, lumbar region, with neurogenic claudication M48.062 Additional Codes JOHN-7 Assessment Billing - JOHN-7 Assessment Tool: JOHN-7 Assessment [id number] ([id number]) Time Spent (min) 30 Comment 10 minute research, 15 with patient, 5 minute charting coordination care
== END 2023-03-28 10:43 | disposition home or self-care (01) ==
PROVIDERS: PCP Internal Medicine; Visit Provider Internal Medicine
DX: Z96.653 Presence of artificial knee joint, bilateral (principal); M46.1 Sacroiliitis, not elsewhere classified; M48.062 Spinal stenosis, lumbar region with neurogenic claudication
CPT/HCPCS: 99214

== ENCOUNTER 2023-05-03 09:18 | Outpatient (AMB) | payer OTHER, SELFPAY ==
[2023-05-03 09:49] VITALS: BP 118/78; PULSE 83; TEMP 36.6; O2SAT 98; BMI 37.6
--- NOTE | 2023-05-03 09:49 | MHC.OFFWIV ---
Intake Vital Signs 05/03/23 09:49 Height 5 ft 7 in Weight 240 lb BMI 37.6 BP 118/78 Blood Pressure Location Lt brachial Position Sitting Pulse 83 Pulse Source Pulse Oximeter Temp 97.9 F Temp Source Temporal Artery Scan Pulse Oximetry (%) 98 Oxygen Delivery Method Room Air Intake Visit Reasons: EP cough sore throat ear ache fever [phone] Intake Note: pt is here today for cough sore throat ear ache fever started 1 week ago Patient Tobacco Use Status: Never used Tobacco Allergies cephalexin [From Keflex] Allergy (Severe, Verified 05/03/23 09:57) Anaphylaxis dicloxacillin Allergy (Severe, Verified 05/03/23 09:57) Anaphylaxis erythromycin base Allergy (Severe, Verified 05/03/23 09:57) Anaphylaxis gabapentin [From Neurontin] Allergy (Severe, Verified 05/03/23 09:57) Confusion, slurred speech hydrochlorothiazide [HYDROCHLOROTHIAZIDE] Allergy (Severe, Verified 05/03/23 09:57) Rash,Swelling,weakness, headaches, balance issues, dry mouth hydromorphone [From Dilaudid] Allergy (Severe, Verified 05/03/23 09:57) Anaphylaxis indomethacin [From Indocin] Allergy (Severe, Verified 05/03/23 09:57) Anaphylaxis morphine [MORPHINE] Allergy (Severe, Verified 05/03/23 09:57) Major hives, Sweats, Throat closes moxifloxacin [From Avelox] Allergy (Severe, Verified 05/03/23 09:57) Anaphylaxis Sulfa (Sulfonamide Antibiotics) [SULFA (SULFONAMIDE ANTIBIOTICS)] Allergy (Severe, Verified 05/03/23 09:57) SAID TO WATCH OUT, anaphylaxis sulfamethoxazole [From Bactrim] Allergy (Severe, Verified 05/03/23 09:57) Anaphylaxis trimethoprim [From Bactrim] Allergy (Severe, Verified 05/03/23 09:57) Anaphylaxis Doxycycline Hyclate Allergy (Severe, Uncoded 03/28/23 08:15) Anaphylaxis Do you need a note to return to daycare/school/sports/work: Yes HPI HPI Comments History of Present Illness Details This is a 57 year old female presenting for evaluation of a sore throat, ear pain, subjective fevers and body aches she has had for the past 1 week. Patient has been taking Mucinex for relief of her symptoms has not been using any antipyretic medications. Patient denies having any sick contacts but states that her cough will keep her up at night. 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 [facility] Medical History Lymphedema of both lower extremities History of shingles History of CVA (cerebrovascular accident) without residual deficits Arthritis Pulmonary emboli Plantar fasciitis History of colitis Osteoarthritis of left hip Lymphedema Arthritis, hip Hip pointer Hip pain Surgical History Hx of gastric bypass Hx of laminectomy Hx laparoscopic cholecystectomy Hx of dilation and curettage History of umbilical hernia repair Hx of appendectomy Hx of total knee replacement Family History Mother No problems noted. Father No problems noted. 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 Cognitive needs: No Hearing needs: No Vision needs: Yes Review of Systems Const All systems reviewed & are unremarkable except as noted in HPI and below Denies chills, Reports fatigue, Reports fever(s) (Subjective) and Reports malaise Eyes Reports no additional complaints ENT Reports no additional complaints, Reports otalgia (bilaterally), Denies hoarseness, Denies nasal discharge, Reports post nasal drip and Reports sore throat Card Reports no additional complaints and Denies dyspnea Resp Reports no additional complaints, Reports cough and Denies dyspnea Skin/Breast Reports system reviewed and no additional complaints, except as documented Psych Reports no additional complaints Endo Reports fatigue Physical Exam Vital Signs: Last Vital Signs Temp 97.9 F 05/03/23 09:49 Pulse 83 05/03/23 09:49 BP 118/78 05/03/23 09:49 Pulse Ox 98 05/03/23 09:49 Oxygen Delivery Method Room Air 05/03/23 09:49 BMI result Body Mass Index 37.6 Patient is afebrile. Const General: cooperative, healthy appearing, comfortable, no acute distress and well developed; No ill appearing Nutritional Appearance: overweight Orientation/consciousness: patient oriented x3 Limitations: no limitations HEENT Head: Yes normal to inspection and Yes normocephalic Ears: hearing grossly normal bilaterally, external ears normal, TM's abnormal bilaterally (erythematous, bulging bilaterally L >> R) and EAC's normal General nose exam: Normal external nose present and Normal nares present Face and sinus: Yes normal facial exam and Yes sinuses nontender Mouth: Normal oral and palatal mucosa present and moist mucous membranes Teeth and gingiva: dentition normal Throat: Yes posterior oropharynx normal (There is no edema, erythema or exudates of the posterior oropharynx.) Eyes Conjunctivae: conjunctivae normal Sclerae: sclerae normal Corneas: corneas normal Pupils: Equal, round and reactive pupils present EOM: EOMs intact bilaterally Neck Lymphatic: no lymphadenopathy noted Resp Effort & Inspection: normal respiratory effort, able to speak in complete sentences, Actively coughing, no respiratory distress and no use of accessory muscles Auscultation: clear to auscultation bilaterally Cardio Rate: regular rate Rhythm: regular rhythm Skin General skin exam: no rashes or lesions noted Neuro General: patient oriented x3 Cranial nerves: Yes Equal, round and reactive pupils present Psych Appearance: grossly normal Mental Status: mental status grossly normal Insight: Good insight present (Psych) Judgement: Good judgement present (Psych) Assessment & Plan Assessment & Plan (1) Cough: Comment: SARS panel ordered and pending. Code(s): R05.9 - Cough, unspecified Qualifiers: Cough type: acute Qualified Code(s): R05.1 - Acute cough Plan: Mucinex OTC with increased clear fluids daily. (2) Otitis media: Code(s): H66.90 - Otitis media, unspecified, unspecified ear Qualifiers: Otitis media type: other nonsuppurative Chronicity: acute Laterality: bilateral Recurrence: non-recurrent Qualified Code(s): H65.193 - Other acute nonsuppurative otitis media, bilateral Plan: Amoxicillin TID x 7 days. Ibuprofen or Tylenol as needed for discomfort. Orders: Orders SARS-CoV2/FLU/RSV Today R05.9 - Cough, unspecified Medications: New amoxicillin 500 mg PO TID 21 caps 0RF Coding Level of Care Code Est Pt Level 3 (99656) Diagnoses Acute cough R05.1 Cough type: acute Other non-recurrent acute nonsuppurative otitis media of both ears H65.193 Otitis media type: other nonsuppurative Chronicity: acute Laterality: bilateral Recurrence: non-recurrent Time Spent (min) 20
== END 2023-05-03 10:11 | disposition home or self-care (01) ==
PROVIDERS: PCP Internal Medicine; Visit Provider Physician Assistant
DX: R05.1 Acute cough (principal); H65.193 Other acute nonsuppurative otitis media, bilateral
CPT/HCPCS: 99213

== ENCOUNTER 2023-05-03 12:56 | Outpatient (REF) | payer OTHER, SELFPAY ==
[2023-05-03 14:05] LABS: Influenza A PCR POSITIVE (Negative); Influenza B PCR NEGATIVE (Negative); Resp Syncy Virus RNA Qual PCR NEGATIVE (Negative); SARS COV2 PCR INHOUSE NEGATIVE (Negative)
== END 2023-05-03 12:57 | disposition home or self-care (01) ==
LOC: HO.HMGCLNP 12:56
PROVIDERS: Visit Provider Physician Assistant
DX: Z11.52 Encounter for screening for COVID-19 (principal); Z20.822 Contact with and (suspected) exposure to COVID-19; R05.9 Cough, unspecified
CPT/HCPCS: 0241U

== ENCOUNTER 2023-05-09 12:16 | Outpatient (AMB) | payer OTHER, SELFPAY ==
[2023-05-09 12:17] VITALS: BP 130/86; PULSE 80; O2SAT 96; BMI 37.8
--- NOTE | 2023-05-09 12:17 | A.OFFPC_ITS ---
Vital Signs 05/09/23 12:17 Height 5 ft 7 in Weight 241 lb 8 oz BMI 37.8 BP 130/86 Blood Pressure Location Lt brachial Position Sitting Pulse 80 Pulse Source Pulse Oximeter Pulse Oximetry (%) 96 Oxygen Delivery Method Room Air Intake Visit Reasons: Annual PE Allergies cephalexin [From Keflex] Allergy (Severe, Verified 05/09/23 12:18) Anaphylaxis dicloxacillin Allergy (Severe, Verified 05/09/23 12:18) Anaphylaxis erythromycin base Allergy (Severe, Verified 05/09/23 12:18) Anaphylaxis gabapentin [From Neurontin] Allergy (Severe, Verified 05/09/23 12:18) Confusion, slurred speech hydrochlorothiazide [HYDROCHLOROTHIAZIDE] Allergy (Severe, Verified 05/09/23 12:18) Rash,Swelling,weakness, headaches, balance issues, dry mouth hydromorphone [From Dilaudid] Allergy (Severe, Verified 05/09/23 12:18) Anaphylaxis indomethacin [From Indocin] Allergy (Severe, Verified 05/09/23 12:18) Anaphylaxis morphine [MORPHINE] Allergy (Severe, Verified 05/09/23 12:18) Major hives, Sweats, Throat closes moxifloxacin [From Avelox] Allergy (Severe, Verified 05/09/23 12:18) Anaphylaxis Sulfa (Sulfonamide Antibiotics) [SULFA (SULFONAMIDE ANTIBIOTICS)] Allergy (Severe, Verified 05/09/23 12:18) SAID TO WATCH OUT, anaphylaxis sulfamethoxazole [From Bactrim] Allergy (Severe, Verified 05/09/23 12:18) Anaphylaxis trimethoprim [From Bactrim] Allergy (Severe, Verified 05/09/23 12:18) Anaphylaxis Doxycycline Hyclate Allergy (Severe, Uncoded 03/28/23 08:15) Anaphylaxis Medication List - Last Reconciled 05/09/23 by Yuliya Wells MD lurasidone 80 mg PO DAILY metformin ER 500 mg PO BEDTIME topiramate 50 mg PO BID venlafaxine ER 150 mg PO DAILY Tobacco use date assessed: 05/09/23 Dental Screening Dental Screen Date: 05/09/23 Did you have a dental visit in the last 12 months?: Yes Did you have a dental problem in the last 6 months where you did not have access to dental care?: No Was dental information given to patient?: Patient has dentist HPI Annual PE HPI Details Patient is a 57-year-old female Mammogram was August of last year Colonoscopy was last year Need appointment with OBGYN, referral placed Lab order placed to be done fasting Patient is taking no medication from this office She was diagnosed with influenza a of this month, however patient was given amoxicillin because of infection in her left ear She is vaccinated against influenza, she is gradually getting better still coughing and have some mucus which is clear Physical exam 1 year [facility] Medical History Lymphedema of both lower extremities History of shingles History of CVA (cerebrovascular accident) without residual deficits Arthritis Pulmonary emboli Plantar fasciitis History of colitis Osteoarthritis of left hip Lymphedema Arthritis, hip Hip pointer Hip pain Surgical History Hx of gastric bypass Hx of laminectomy Hx laparoscopic cholecystectomy Hx of dilation and curettage History of umbilical hernia repair Hx of appendectomy Hx of total knee replacement Family History Mother No problems noted. Father No problems noted. 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 1. Little interest or pleasure in doing things: several days 2. Feeling down, depressed, or hopeless: several days 3. Trouble falling or staying asleep, or sleeping too much: not at all 4. Feeling tired or having little energy: several days 5. Poor appetite or overeating: not at all 6. Feeling bad about yourself - or that you are a failure or have let yourself or your family down: several days 7. Trouble concentrating on things, such as reading the newspaper or watching television: several days 8. Moving or speaking so slowly that other people could have noticed. Or the opposite - being so fidgety or restless that you have been moving around a lot more than usual: not at all 9. Thoughts that you would be better off or of hurting yourself in some way: not at all Total score: 5 Depression Screening Interpretation: Negative Depression Screening Done: Yes 56515 - PHQ-9 Billing: Yes Source: Developed by Drs. Ward Ledesma, Marta Caldera, Joe Stevenson and colleagues, with an educational pato from [employer]. Thrive Questionnaire Date Thrive assessed: 03/28/23 AUDIT C Alcohol Use Questionnaire (AUDIT-C) 1. How often do you have a drink containing alcohol?: Never 3. How often do you have six or more drinks on one occasion?: Never Total Score: 0 Score Reviewed/Action Taken: Yes JOHN-7 AMB Questionnaire JOHN-7 Date JOHN - 7 assessed: 03/28/23 Source: Developed by Drs. Ward Ledesma, Marta Caldera, Joe Stevenson and colleagues, with an educational pato from [employer]. Review of Systems Const Denies chills, Denies fever(s) and Denies headache(s) Eyes Denies blurry vision ENT Denies headache(s), Denies nasal discharge, Denies nasal obstruction, Denies odynophagia and Denies sinus pain Card Denies chest pain at rest and Denies chest pain with activity Resp Denies hemoptysis GI Denies diarrhea, Denies odynophagia, Denies vomiting and Denies hematemesis Reports as per HPI Musc Denies abnormal gait Skin/Breast Reports as per HPI Neuro Denies Neuro-related abnormal movements, Denies Abnormal speech present, Denies abnormal gait, Denies headache(s) and Denies Sensory deficit (Neuro) Psych Denies mood swings and Denies paranoia Endo Reports as per HPI Gonsalo/Lymph Reports as per HPI Aller/Immun Reports as per HPI Physical exam (Primary Care) Vital Signs: Last Vital Signs Pulse 80 05/09/23 12:17 BP 130/86 05/09/23 12:17 Pulse Ox 96 05/09/23 12:17 Oxygen Delivery Method Room Air 05/09/23 12:17 BMI result Body Mass Index 37.8 Tobacco/Smoking Status: Tobacco use Status Tobacco use date assessed 05/09/23 05/09/23 12:19 Patient Tobacco Use Status Never used Tobacco 05/09/23 12:19 e-Cigarette/Vaping Use Never Used 05/09/23 12:19 Depression Screening Interpretation: Negative Thrive Assessment: Date of Thrive Assessment Date Thrive assessed 03/28/23 05/09/23 12:19 Const General: cooperative, comfortable and no acute distress Orientation/consciousness: patient oriented x3 HENMT Head: Yes normocephalic and Yes atraumatic Eyes General: appearance normal, both eyes and all related structures Pupils: Equal, round and reactive pupils present EOM: EOMs intact bilaterally Neck Neck: Yes supple and No lymphadenopathy Thyroid: Thyroid normal Lymphatic: no lymphadenopathy noted Chest Breast/axilla palpation: normal palpation of the breasts Resp Effort & Inspection: normal respiratory effort and able to speak in complete sentences Auscultation: clear to auscultation bilaterally Cardio Heart sounds: S1 normal heart sound present and S2 normal heart sound present GI Palpation (GI): Soft to palpation and nontender Auscultation: normal bowel sounds General: Yes no CVA tenderness Back/Spine/Pelvis Back: no CVA tenderness Skin General skin exam: elasticity normal and turgor normal Neuro General: patient oriented x3 and gait normal Cranial nerves: Yes Equal, round and reactive pupils present Speech: No Abnormal speech present Sensory Exam: No Sensory deficit (Neuro) Coordination: tandem gait normal and Romberg test negative Extrem General: Yes normal exam except as noted and No edema Assessment and Plan Assessment & Plan (1) Encounter for general adult medical examination with abnormal findings: Code(s): Z00.01 - Encounter for general adult medical examination with abnormal findings (2) Anemia: Code(s): D64.9 - Anemia, unspecified Qualifiers: Anemia type: other cause Other causes of anemia: chronic disease, other Qualified Code(s): D63.8 - Anemia in other chronic diseases classified elsewhere (3) Low TSH level: Code(s): R79.89 - Other specified abnormal findings of blood chemistry (4) Obesity: Code(s): E66.9 - Obesity, unspecified Qualifiers: Body mass index: BMI 37.0-37.9 Obesity classification: adult class 2 (BMI 35 - 39.9) Obesity type: due to excess calories Serious obesity comorbidity presence: without serious comorbidity Qualified Code(s): E66.09 - Other obesity due to excess calories; Z68.37 - Body mass index [BMI] 37.0-37.9, adult Plan Patient is a 57-year-old female Mammogram was August of last year Colonoscopy was last year Need appointment with OBGYN, referral placed Lab order placed to be done fasting Patient is taking no medication from this office She was diagnosed with influenza a of this month, however patient was given amoxicillin because of infection in her left ear She is vaccinated against influenza, she is gradually getting better still coughing and have some mucus which is clear Physical exam 1 year Orders: Orders Comprehensive [place]. Panel Fast Today D64.9 - Anemia, unspecified, E66.9 - Obesity, unspecified, R79.89 - Other specified abnormal findings of blood chemistry, Z00.01 - Encounter for general adult medical examination with abnormal findings TSH reflex Free T4 Today D64.9 - Anemia, unspecified, E66.9 - Obesity, unspecified, R79.89 - Other specified abnormal findings of blood chemistry, Z00.01 - Encounter for general adult medical examination with abnormal findings Complete Blood Count Auto Diff Today D64.9 - Anemia, unspecified, E66.9 - Obesity, unspecified, R79.89 - Other specified abnormal findings of blood chemistry, Z00.01 - Encounter for general adult medical examination with abnormal findings Lipid Panel Today D64.9 - Anemia, unspecified, E66.9 - Obesity, unspecified, R79.89 - Other specified abnormal findings of blood chemistry, Z00.01 - Encounter for general adult medical examination with abnormal findings Referrals MEDICAL TECHNOLOGIST CHEMISTRY Referral Z01.419 - Encounter for gynecological examination (general) (routine) without abnormal findings Coding Level of Care Code Est Pt Prev Care 40-64y(78409) Diagnoses Encounter for general adult medical examination with abnormal findings Z00.01 Anemia in other chronic diseases classified elsewhere D63.8 Anemia type: other cause Other causes of anemia: chronic disease, other Low TSH level R79.89 Class 2 obesity due to excess calories without serious comorbidity with body mass index (BMI) of 37.0 to 37.9 in adult E66.09; Z68.37 Body mass index: BMI 37.0-37.9 Obesity classification: adult class 2 (BMI 35 - 39.9) Obesity type: due to excess calories Serious obesity comorbidity presence: without serious comorbidity
== END 2023-05-09 12:47 | disposition home or self-care (01) ==
PROVIDERS: PCP Internal Medicine; Visit Provider Internal Medicine
DX: Z00.00 Encounter for general adult medical examination without abnormal findings (principal); D63.8 Anemia in other chronic diseases classified elsewhere; E66.09 Other obesity due to excess calories; Z68.37 Body mass index [BMI] 37.0-37.9, adult; R79.89 Other specified abnormal findings of blood chemistry
CPT/HCPCS: 99396

== ENCOUNTER 2023-05-09 12:48 | Outpatient (REF) | payer OTHER, SELFPAY ==
[2023-05-09 16:06] LABS: MANUAL DIFF FLAG NO
[2023-05-09 16:12] LABS: Basophils Percent Auto 0.3 % (0-2); Eosinophils Absolute Auto 0.1 X10*3/uL (0.0-0.4); Eosinophils Percent Auto 0.9 % (0-4); Hematocrit 44.1 % (37.0-47.0); Hemoglobin 14.6 g/dl (12.0-16.0); Imm Gran Abs Auto 0.03 X10*3/uL (0.00-0.03); Imm Gran Pct Auto 0.4 % (0.0-0.4); Lymphocytes Absolute Auto 3.1 X10*3/uL (1.2-4.9); Mean Corpuscular HGB Conc 33.1 g/dl (31.0-35.0); Mean Corpuscular Hemoglobin 29.3 pg (27.0-33.0); Mean Corpuscular Volume 88.4 fL (80.0-98.0); Monocytes Absolute Auto 0.4 X10*3/uL (0.1-1.2); Neutrophils Percent Auto 52.4 % (45-73); Platelet Count 287 X10*3/uL (160-400); Red Blood Count 4.99 X10*6/uL (4.20-5.50); Red Cell Distribution Width 13.2 % (11.0-16.0); White Blood Count 7.6 X10*3/uL (4.8-10.8)
[2023-05-09 16:34] LABS: Alanine Aminotransferase 28 U/L (0-31); Albumin Level 3.8 g/dL (3.5-5.0); Alkaline Phosphatase 62 U/L (39-117); Anion Gap 13 (12-20); Aspartate Amino Transferase 28 U/L (5-31); Bilirubin Total 0.4 mg/dL (0.0-1.0); Blood Urea Nitrogen 12 mg/dL (9-16); Calcium 9.8 mg/dL (8.4-10.2); Carbon Dioxide 26 mmol/L (22-29); Chloride 107 mmol/L (96-108); Cholesterol 179 mg/dL (<200); Estimated Glomerular Filt Rate > 60; Glucose Fasting 93 mg/dL (60-99); HDL Cholesterol 57 mg/dL (>40); LDL Cholesterol Calculated 91 mg/dL (<100); Potassium 3.8 mmol/L (3.3-5.1); Sodium 142 mmol/L (135-145); Total Protein 7.1 g/dL (6.5-8.0); Triglycerides 159 mg/dL (<150)
== END 2023-05-09 12:49 | disposition home or self-care (01) ==
LOC: HO.HMGCLDS 12:48
PROVIDERS: PCP Internal Medicine; Visit Provider Internal Medicine
DX: Z00.01 Encounter for general adult medical examination with abnormal findings (principal); D64.9 Anemia, unspecified; R79.89 Other specified abnormal findings of blood chemistry; E66.9 Obesity, unspecified
CPT/HCPCS: 36415; 80053; 80061; 84443; 85025

== ENCOUNTER 2023-05-11 09:34 | Outpatient (AMB) | payer OTHER, SELFPAY ==
--- NOTE | 2023-05-11 09:36 | A.OFFVIS_ITS ---
Intake VS Expanded 05/11/23 09:44 BP 143/79 H Blood Pressure Location Rt brachial Blood Pressure Position Sitting Pulse 96 Pulse Source Pulse Oximeter Temp 96.2 F L Temperature Source Tympanic Pulse Oximetry 97 Oxygen Delivery Method Room Air Height 5 ft 4 in Weight 237 lb 12.8 oz BMI 40.8 Body Fat % 39.7 Body Fat Mass 94.4 Fat Free Mass 143.4 Visceral Fat Rating 12.0 Body Water % 42.8 Body Water Mass 101.6 Muscle Mass/Score 136.0 Basal Metabolic Rate/Score 1,967 Intake Visit Reasons: (OV) PO GBP 09/15/2016 Allergies cephalexin [From Keflex] Allergy (Severe, Verified 05/11/23 09:46) Anaphylaxis dicloxacillin Allergy (Severe, Verified 05/11/23 09:46) Anaphylaxis erythromycin base Allergy (Severe, Verified 05/11/23 09:46) Anaphylaxis gabapentin [From Neurontin] Allergy (Severe, Verified 05/11/23 09:46) Confusion, slurred speech hydrochlorothiazide [HYDROCHLOROTHIAZIDE] Allergy (Severe, Verified 05/11/23 09:46) Rash,Swelling,weakness, headaches, balance issues, dry mouth hydromorphone [From Dilaudid] Allergy (Severe, Verified 05/11/23 09:46) Anaphylaxis indomethacin [From Indocin] Allergy (Severe, Verified 05/11/23 09:46) Anaphylaxis morphine [MORPHINE] Allergy (Severe, Verified 05/11/23 09:46) Major hives, Sweats, Throat closes moxifloxacin [From Avelox] Allergy (Severe, Verified 05/11/23 09:46) Anaphylaxis Sulfa (Sulfonamide Antibiotics) [SULFA (SULFONAMIDE ANTIBIOTICS)] Allergy (Severe, Verified 05/11/23 09:46) MD SAID TO WATCH OUT, anaphylaxis sulfamethoxazole [From Bactrim] Allergy (Severe, Verified 05/11/23 09:46) Anaphylaxis trimethoprim [From Bactrim] Allergy (Severe, Verified 05/11/23 09:46) Anaphylaxis Doxycycline Hyclate Allergy (Severe, Uncoded 05/11/23 09:46) Anaphylaxis Medication List - Last Reviewed 05/11/23 by Franci Howard, BINDERY MACHINE OPERATOR calcium carbonate 500 mg PO TID clonazepam (Klonopin) 2 mg PO TID dextroamphetamine-amphetamine 30 mg (Adderall) 30 mg PO BID iron,ambqvmjb-SY-wkwrreel-min 30 mg iron- 800 mcg (Opurity Multivitamin) 1 tab PO DAILY metformin ER 500 mg PO BEDTIME omeprazole 40 mg PO QDAY topiramate 50 mg PO BID venlafaxine ER 150 mg PO DAILY HPI HPI Comments History of Present Illness Details Pt is almost 7 years s/p GBP with Dr Gonzalez. Received letter in mail prompting her to come in. No n/v, abd pain or reflux. Saw PCP last week with blood work done at [facility]. 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 Last appt in our office was September 2021 at 217 lbs. Meal plan: 6:30 am - mohawk muffin with PB and OJ or 2% milk 10 am - 15 gram protein bar 12:30 pm - 2 cups salad with (2 oz ) willem a or chicken, sometimes no protein. water or unsweetened iced tea 2pm - banana or apple or orange 5:30 pm - (2-3 oz) protein, (2 cups) veg etable and often potato Exercise - stretches every morning. Walk 1 mile in 45 minutes every day. [facility] Medical History (Updated 05/11/23 @ 09:40 by Peggy Smith PA-C) Lymphedema of both lower extremities History of shingles History of CVA (cerebrovascular accident) without residual deficits Arthritis Pulmonary emboli Plantar fasciitis History of colitis Osteoarthritis of left hip Lymphedema Arthritis, hip Hip pointer Hip pain Surgical History Hx of gastric bypass Hx of laminectomy Hx laparoscopic cholecystectomy Hx of dilation and curettage History of umbilical hernia repair Hx of appendectomy Hx of total knee replacement Family History Mother No problems noted. Father No problems noted. 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 Cognitive needs: No Hearing needs: No Vision needs: Yes Physical Exam Vital Signs: Last Vital Signs Temp 96.2 F L 05/11/23 09:44 Pulse 96 05/11/23 09:44 BP 143/79 H 05/11/23 09:44 Pulse Ox 97 05/11/23 09:44 Oxygen Delivery Method Room Air 05/11/23 09:44 BMI result Body Mass Index 40.8 Assessment & Plan Assessment & Plan (1) Obesity: Code(s): E66.9 - Obesity, unspecified Qualifiers: Body mass index: BMI 37.0-37.9 Obesity classification: adult class 2 (BMI 35 - 39.9) Obesity type: due to excess calories Serious obesity comorbidity presence: without serious comorbidity Qualified Code(s): E66.09 - Other obesity due to excess calories; Z68.37 - Body mass index [BMI] 37.0-37.9, adult Plan: Pt is now almost 7 years s/p GBP with inadequate weight loss and now weight regain. She has an inadeqaute meal and exercise program. She is asking for a referral to Dr Kang again - not seen since 2019. She has lymphedema of B LE's contributing to her weight. We will contact his office for referral - not in our EMR. Need about 90 grams protein per day over 4 eating periods 6:30 - protien bar, water or a protein shakes 11 am - 4 oz protien, 5 oz salad vegetables 3pm - bar 6pm - 4oz proiten and 4 oz vegetable Exercise - continue stretching exercises -- advance to ST exercises 3d/ week. LS 2 miles sit and stand prn 5 d/week. Handout given to pt. Next appt in September with [facility]er[facility]. Patient is morbidly obese and is not considered stable at this time. I spent 30 minutes in total with patient reviewing/updating records, examining the patient and counseling the patient on weight management as detailed above. (2) S/P gastric bypass: Comment: August 2016 Code(s): Z98.84 - Bariatric surgery status Plan see above Coding Level of Care Code Est Pt Level 4 (35291) Diagnoses Class 2 obesity due to excess calories without serious comorbidity with body mass index (BMI) of 37.0 to 37.9 in adult E66.09; Z68.37 Body mass index: BMI 37.0-37.9 Obesity classification: adult class 2 (BMI 35 - 39.9) Obesity type: due to excess calories Serious obesity comorbidity presence: without serious comorbidity S/P gastric bypass Z98.84
[2023-05-11 09:44] VITALS: BP 143/79; PULSE 96; TEMP 35.7; O2SAT 97; BMI 40.8
== END 2023-05-11 10:09 | disposition home or self-care (01) ==
PROVIDERS: PCP Internal Medicine; Visit Provider Physician Assistant
DX: E66.09 Other obesity due to excess calories (principal); Z68.37 Body mass index [BMI] 37.0-37.9, adult; Z98.84 Bariatric surgery status
CPT/HCPCS: 99214

== ENCOUNTER → 2023-05-11 09:34 | Outpatient (BNVA) | payer OTHER, SELFPAY | PROVIDERS: PCP Internal Medicine; Visit Provider Physician Assistant ==